=== PATIENT | female | born 1975 | race Caucasian/White ===

== ENCOUNTER 2016-10-23 16:40 | Emergency (ER) | payer OTHER ==
[~2016-10-23] VITALS: Ht 170.2 cm; Wt 142.2 kg
[~2016-10-23 16:40] MED LIST: ABILIFY15 MG PO; ABILIFY20 MG PO; ADVAIR 250/501 DISK IH; ADVAIR 500/501 DISK IH; ADVAIR HFA120 INHALA IH; ADVIL,NUPRIN,M200 MG PO; ADVIL200 MG PO; ALBUTEROL SULF8.5 GM IH; ALBUTEROL2.5 MG/3 M IH; ALEVE220 M2 PO; ALEVE220 MG PO; ALPRAZOLAM0.5 M1 PO; ALPRAZOLAM1 MG PO; AMARYL2 MG PO; AMLODIPINE BESYL5 MG PO; AMOX TR-K CLV1 EAC4 PO; AMOXICILLIN875 MG PO; ARIPIPRAZOLE20 MG PO; ASPIR 8181 M1 PO; ASPIRIN EC325 MG PO; ASPIRIN325 MG PO; ASPIRIN81 M2 PO; ATORVASTATIN CA40 MG PO; AUGMENTIN875 MG PO; AZITHROMYCIN250 MG1 PO; AZITHROMYCIN500 M1 PO; Advair HFA 115/21 IH; BACTRIM,SEPT1 TABLET PO; BENZONATATE100 MG PO; BUSPAR10 MG PO; BUSPIRONE HCL10 MG PO; Buspar PO; CALCIUM 500 MG1 EACH PO; CARAFATE1 GM PO; CARAFATE100 MG/ML PO; CEFDINIR300 MG PO; CEFTIN500 MG PO; CELLCEPT250 MG PO; CELLCEPT500 MG PO; CHANTIX1 EACH PO; CHANTIX1 MG PO; CHEWABLE-VITE1 EACH PO; CLARITIN,ALAVAR10 MG PO; CLEOCIN300 MG PO; CLINDAMYCIN HC300 MG PO; CLOBETASOL PROP60 GM TP; CLOBEX118 ML TP; CLOPIDOGREL75 MG PO; CORMAX50 M1 TP; COUMADIN7.5 MG PO; CYCLOBENZAPRINE10 MG PO; DELTASONE20 M1 PO; DIFLUCAN100 MG PO; DILAUDID2 MG PO; DILAUDID4 MG PO; DOXYCYCLINE HY100 MG PO; DUONEB 2.5-0.5 M3 ML AEROSOL; DUONEB 2.5-0.5 M3 ML IH; DURAGESIC12 MCG TD; Dilaudid PO; EFFEXOR XR150 MG PO; EFFEXOR XR75 MG PO; FLEXERIL10 MG PO; FLEXERIL5 MG PO; FLONASE16 G1 BOTH NARES; FLOVENT 22120 INHALA IH; FUROSEMIDE40 MG PO; Flexeril PO; GABAPENTIN300 MG PO; GABAPENTIN400 MG; GUAIFENESI100 MG/5 M PO; HUMALOG100 UNIT/1 SC; Habitrol,Nicoderm CQ TD; INDERAL10 MG PO; INDERAL20 MG PO; IRON240 MG PO; K-DUR20 MEQ PO; KENALOG,ARISTOC80 GM TP; KLOR-CON M2020 MEQ PO; LANTUS 10100 UNITS/ SC; LASIX40 MG PO; LEVEMIR FL100 UNIT/1 SC; LIPITOR40 MG PO; LISINOPRIL2.5 MG PO; LOPRESSOR25 MG PO; LOVENOX100 MG/1 M SC; LOVENOX150 MG/1 M SC; LYRICA100 MG PO; LYRICA150 MG PO; LYRICA50 MG PO; MAGIC MOUTHWASH1 ML MM; MELOXICAM15 MG PO; MELOXICAM7.5 MG PO; METFORMIN HCL500 MG PO; METOPROLOL TART25 MG PO; MIRALAX255 GM PO; MOBIC15 MG PO; MORGIDOX100 MG PO; MORPHINE SULFAT15 M1 PO; MORPHINE SULFAT15 MG PO; MOTRIN IB200 MG PO; MOTRIN800 MG PO; MS CONTIN,ORAMO15 M1 PO; MUCINEX600 MG PO; NAPROSYN250 MG PO; NAPROSYN500 MG PO; NEURONTIN300 MG PO; NEURONTIN400 MG PO; NICODERM CQ1 EAC2 TD; NICOTINE PATCH1 EAC2 TD; NITROSTAT0.4 MG SL; NORCO 5/3251 TABLET PO; NORVASC2.5 MG PO; NOVOLOG PE100 UNITS/ SC; NOXAFIL100 MG PO; Neurontin PO; OMEPRAZOLE40 M1 PO; ONDANSETRON ODT4 MG PO; ONDANSETRON ODT8 MG PO; OXYCODONE H5 MG/5 ML PO; OXYCODONE HCL10 MG PO; OXYCODONE HCL5 MG PO; OXYCONTIN10 MG PO; PHENERGAN25 MG PR; PLAVIX75 MG PO; POTASSIUM CHLO20 ME1 PO; PRAZOSIN HCL2 MG PO; PREDNISONE PO; PREDNISONE10 MG PO; PREDNISONE20 MG PO; PREDNISONE5 MG PO; PREDNISONE50 MG PO; PRILOSEC OTC20 MG PO; PRILOSEC20 MG PO; PROAIR HFA8.5 GM IH; PROMETHAZINE HC25 MG PR; PROTONIX40 MG PO; PROVENTIL,2.5 MG/3 M IH; QUETIAPINE FUM200 MG PO; QUETIAPINE FUMA25 MG PO; QUETIAPINE FUMA50 MG PO; RANEXA500 MG PO; ROXICODONE15 MG PO; Robitussin, Organidi PO; SEROQUEL12.5 MG PO; SEROQUEL200 MG PO; SEROQUEL50 MG PO; SINGULAIR10 MG PO; SPIRIVA RESPIMAT4 GM IH; SPIRIVA1 INHALATI IH; SYMBICORT60 INHALAT IH; Singulair PO; Spiriva IH; TEMOVATE 0.05%30 GM TP; TESSALON PERLE100 MG PO; TESSALON200 MG PO; TOPAMAX25 MG PO; TOPAMAX50 MG PO; TRAMADOL HCL50 MG PO; TRANSDERM-SCO1 PATCH TD; TRESIBA FL100 UNIT/1 SC; Tessalon Perle PO; Tums,OsCal PO; ULTRAM50 MG PO; VENLAFAXINE HCL75 M1 PO; VENLAFAXINE HCL75 M3 PO; VENLAFAXINE HCL75 MG PO; VENLAFAXINE225 MG PO; VENTOLIN HFA18 GM IH; VITAMIN B-121000 MC1 PO; VITAMIN B-122000 MC1 PO; XANAX1 MG; XANAX1 MG PO; XANAX2 MG PO; XARELTO20 MG PO; ZANTAC150 MG PO; ZITHROMAX250 MG PO; ZITHROMAX500 MG PO; ZOFRAN ODT4 MG PO; ZOFRAN4 MG PO; ZOFRAN8 M1 PO; ZOFRAN8 MG PO; ZOLOFT25 MG PO; ZOMIG5 MG PO; Zeasorb Antifungal Treatment,Mitrazol Powder TP; Zithromax PO; [UNRECOGNIZED DRUG - OTHER] PO; predniSONE PO
[2016-10-23 17:49] LABS: HEMATOCRIT 41.2 % (36.0-46.0); MCH 30.7 PG (29.0-34.0); MCHC 35.4 G/DL (30.0-36.0); MCV 86.6 FL (83-99); MEAN PLAT.VOLUME 11.8 uM^3 (9.5-12.4); PLATELET COUNT 170 K/uL (156-360); RBC DIS.WIDTH-CV 14.3 % (11.8-14.6); RBC DIS.WIDTH-SD 44.7 % (39-53); RED BLOOD COUNT 4.76 M/uL (3.80-5.20); WHITE BLOOD COUNT 5.3 K/uL (4.1-10.2)
[2016-10-23 17:57] LABS: CHLORIDE 104 mEq/L (99-109); POTASSIUM 3.3 mEq/L (3.7-5.4); SODIUM 140 mEq/L (136-147)
[2016-10-23 17:59] LABS: GLUCOSE 88 mg/dL (70-99)
[2016-10-23 18:00] LABS: ANION GAP 12 MEQ/L (2-14)
[2016-10-23 18:03] LABS: GFR ESTIMATE (CALCULATED) > 59 mL/min/
[2016-10-23 18:04] LABS: UREA NITROGEN (BUN) 5 mg/dL (9-23)
[2016-10-23 18:10] LABS: TROP-I INTERPRETATION NEGATIVE; TROPONIN-I < 0.01 ng/mL (0.0-0.30)
[2016-10-23] MEDS ORDERED: XANAX1 MG PO (21:46)
[2016-10-23] MEDS ORDERED: ZOFRAN8 MG PO (21:50)
[2016-10-23] MEDS ORDERED: OXYCODONE HCL10 MG PO (21:52)
[2016-10-23] MEDS ORDERED: VENTOLIN HFA18 GM IH (21:53)
[2016-10-23] MEDS ORDERED: VITAMIN B12 100MCG PO (21:54)
[2016-10-23] MEDS ORDERED: DAILY VITE1 EAC1 PO (21:55)
[2016-10-23] MEDS ORDERED: ERGOCALCIF50000 UNIT PO (21:55)
[2016-10-23] MEDS ORDERED: CALCIUM500 M4 PO (21:56)
[2016-10-23 22:30] VITALS: BP 120/58
[2016-10-24] MEDS ORDERED: ABILIFY20 MG PO (14:26)
[2016-10-24] MEDS ORDERED: DUONEB 2.5-0.5 M3 ML AEROSOL (14:33)
[2016-10-24] MEDS ORDERED: AUGMENTIN875 MG PO (14:34)
[2016-10-24] MEDS ORDERED: DELTASONE20 M1 PO (14:34)
[2016-10-24] MEDS ORDERED: BACTRIM,SEPT1 TABLET PO (14:35)
== END 2016-10-23 23:14 | disposition left against medical advice (07) ==
LOC: EME 16:40 → EDOF 23:06
PROVIDERS: Emergency Medicine
DX: J18.9 Pneumonia, unspecified organism (principal); R09.02 Hypoxemia; E11.9 Type 2 diabetes mellitus without complications; I50.9 Heart failure, unspecified; Z99.81 Dependence on supplemental oxygen; Z98.84 Bariatric surgery status; I25.2 Old myocardial infarction; Z90.49 Acquired absence of other specified parts of digestive tract
CPT/HCPCS: 71020; 80048; 84484; 85027; 87040; 93005; 99281; 99285; J0456; J1885; J2405; J2543

== ENCOUNTER 2016-10-24 12:03 | Inpatient (IN) | payer OTHER ==
[~2016-10-24] VITALS: Ht 170.2 cm; Wt 139.4 kg
[~2016-10-24 12:03] MED LIST changes: +CALCIUM500 M4 PO; +DAILY VITE1 EAC1 PO; +ERGOCALCIF50000 UNIT PO; +VITAMIN B12 100MCG PO
[2016-10-24] MEDS ORDERED: ABILIFY20 MG PO (14:26)
[2016-10-24] MEDS ORDERED: DUONEB 2.5-0.5 M3 ML AEROSOL (14:33)
[2016-10-24] MEDS ORDERED: AUGMENTIN875 MG PO (14:34)
[2016-10-24] MEDS ORDERED: DELTASONE20 M1 PO (14:34)
[2016-10-24] MEDS ORDERED: BACTRIM,SEPT1 TABLET PO (14:35)
[2016-10-24 15:19] LABS: EOSINOPHIL (%) 0.7 % (0-5); HEMATOCRIT 38.5 % (36.0-46.0); IMMATURE GRANULOCYTE (%) 0.4 % (0.0-0.7); IMMATURE GRANULOCYTE COUNT 0.2 K/uL; LYMPHOCYTE COUNT 0.4 K/uL (1.0-2.8); MCH 30.8 PG (29.0-34.0); MCHC 35.3 G/DL (30.0-36.0); MCV 87.3 FL (83-99); MEAN PLAT.VOLUME 11.7 uM^3 (9.5-12.4); MONOCYTE (%) 2.9 % (3-12); MONOCYTE COUNT 0.1 K/uL (0-0.8); NEUTROPHIL (%) 87.6 % (45-76); PLATELET COUNT 175 K/uL (156-360); RBC DIS.WIDTH-CV 14.3 % (11.8-14.6); RBC DIS.WIDTH-SD 44.8 % (39-53); RED BLOOD COUNT 4.41 M/uL (3.80-5.20); WHITE BLOOD COUNT 4.6 K/uL (4.1-10.2)
[2016-10-24 15:28] LABS: CHLORIDE 105 mEq/L (99-109); POTASSIUM 3.2 mEq/L (3.7-5.4); SODIUM 139 mEq/L (136-147)
[2016-10-24 15:31] LABS: ANION GAP 10 MEQ/L (2-14)
[2016-10-24 15:32] LABS: TOTAL BILIRUBIN 0.5 mg/dL (0.0-1.0)
[2016-10-24 15:34] LABS: ALKALINE PHOSPHATASE 168 IU/L (3-129); GFR ESTIMATE (CALCULATED) > 59 mL/min/
[2016-10-24 15:35] LABS: UREA NITROGEN (BUN) 6 mg/dL (9-23)
[2016-10-24 15:37] LABS: GLUCOSE 114 mg/dL (70-99)
[2016-10-24 15:40] LABS: TROP-I INTERPRETATION NEGATIVE; TROPONIN-I < 0.01 ng/mL (0.0-0.30)
[2016-10-24 15:43] LABS: QUANTITATIVE HCG < 4.0 MIU/ML
[2016-10-24 15:47] VITALS: BP 132/67
[2016-10-24 16:42] LABS: INFLUENZA A VIRAL ANTIGEN NEGATIVE; INFLUENZA B VIRAL ANTIGEN NEGATIVE
[2016-10-24 20:00] VITALS: BP 116/69
== END 2016-10-24 22:42 | disposition left against medical advice (07) | DRG 193 ==
LOC: EME 12:03 → EDOF 13:48 → 5SOUTH 13:48
PROVIDERS: Emergency Medicine
DX: J18.9 Pneumonia, unspecified organism (principal); J96.00 Acute respiratory failure, unspecified whether with hypoxia or hypercapnia; J44.1 Chronic obstructive pulmonary disease with (acute) exacerbation; D68.51 Activated protein C resistance; E66.01 Morbid (severe) obesity due to excess calories; J84.89 Other specified interstitial pulmonary diseases; E11.9 Type 2 diabetes mellitus without complications; I50.9 Heart failure, unspecified; E78.5 Hyperlipidemia, unspecified; I25.10 Atherosclerotic heart disease of native coronary artery without angina pectoris; G47.33 Obstructive sleep apnea (adult) (pediatric); G89.29 Other chronic pain; I10 Essential (primary) hypertension; M79.7 Fibromyalgia; Z95.5 Presence of coronary angioplasty implant and graft; Z98.84 Bariatric surgery status; Z87.891 Personal history of nicotine dependence; I25.2 Old myocardial infarction; Z90.49 Acquired absence of other specified parts of digestive tract
CPT/HCPCS: 71010; 71020; 80048; 80053; 83605; 83880; 84484; 84702; 85025; 85027; 87040; 87070; 87205; 87502; 93005; 94640; 94640 76; 94799; 99202; 99281; 99285; J0456; J0692; J1170; J1885; J2405; J2543; J2930; J3010; J7030; J7050

== ENCOUNTER 2016-10-26 21:16 | Inpatient (IN) | payer OTHER ==
[~2016-10-26] VITALS: Ht 170.2 cm; Wt 134.9 kg
[2016-10-26 22:42] LABS: EOSINOPHIL (%) 0.2 % (0-5); HEMATOCRIT 37.9 % (36.0-46.0); IMMATURE GRANULOCYTE (%) 0.3 % (0.0-0.7); IMMATURE GRANULOCYTE COUNT 0.3 K/uL; LYMPHOCYTE COUNT 0.6 K/uL (1.0-2.8); MCH 31.1 PG (29.0-34.0); MCHC 35.9 G/DL (30.0-36.0); MCV 86.7 FL (83-99); MEAN PLAT.VOLUME 11.3 uM^3 (9.5-12.4); MONOCYTE COUNT 0.4 K/uL (0-0.8); NEUTROPHIL (%) 89.2 % (45-76); NEUTROPHIL COUNT 7.9 K/uL (1.8-6.4); PLATELET COUNT 180 K/uL (156-360); RBC DIS.WIDTH-CV 14.1 % (11.8-14.6); RBC DIS.WIDTH-SD 44.4 % (39-53); RED BLOOD COUNT 4.37 M/uL (3.80-5.20)
[2016-10-26 22:43] LABS: WHITE BLOOD COUNT 8.9 K/uL (4.1-10.2)
[2016-10-26 22:50] LABS: CHLORIDE 102 mEq/L (99-109); POTASSIUM 2.9 mEq/L (3.7-5.4); SODIUM 137 mEq/L (136-147)
[2016-10-26 22:52] LABS: GLUCOSE 148 mg/dL (70-99)
[2016-10-26 22:53] LABS: ANION GAP 12 MEQ/L (2-14)
[2016-10-26 22:56] LABS: GFR ESTIMATE (CALCULATED) > 59 mL/min/; UREA NITROGEN (BUN) 5 mg/dL (9-23)
[2016-10-27] MEDS ORDERED: CALCIUM 500 MG1 EACH PO (01:00)
[2016-10-27] MEDS ORDERED: CYANOCOBALAM1000 MCG PO (01:01)
[2016-10-27] MEDS ORDERED: VITAMIN B-125000 MCG SL (01:03)
[2016-10-27 01:20] LABS: ADD MIUA? YES; BILIRUBIN NEGATIVE; BLOOD NEGATIVE; COLOR YELLOW ((YELLOW)); GLUCOSE (STRIP) 100; KETONES NEGATIVE; LEUKOCYTES TRACE; NITRITE NEGATIVE; PH, URINE 6.5 (5-8); PROTEIN (STRIP) NEGATIVE; SPECIFIC GRAVITY 1.015 (1.000-1.030)
[2016-10-27 01:43] LABS: BACTERIA 1+; CASTS PRESENT /LPF; CRYSTALS NONE SEEN; EPITHELIAL CELLS 1+; HYALINE CASTS 0-5 /LPF; MUCUS RARE; RED BLOOD CELLS NONE SEEN /HPF (0-5); UCUL ADDED? NO; WHITE BLOOD CELLS 0-5 /HPF (0-5)
[2016-10-27 03:34] VITALS: BP 115/67
[2016-10-27 04:10] LABS: TROP-I INTERPRETATION NEGATIVE; TROPONIN-I < 0.01 ng/mL (0.0-0.30)
[2016-10-27 08:53] LABS: ANION GAP 10 MEQ/L (2-14); CHLORIDE 102 MEQ/L (99-109); GFR ESTIMATE (CALCULATED) > 59 mL/min/; GLUCOSE 146 mg/dL (70-99); SAMPLE HEMOLYSIS CHECK 0; SAMPLE ICTERIC CHECK 0; SAMPLE LIPEMIA CHECK 0; SODIUM 137 MEQ/L (136-147); UREA NITROGEN (BUN) 6 mg/dL (9-23)
[2016-10-27 08:54] LABS: POTASSIUM 3.9 MEQ/L (3.7-5.4)
[2016-10-27 09:17] VITALS: BP 129/63
[2016-10-27 11:44] VITALS: BP 110/66
[2016-10-27 16:05] VITALS: BP 107/50
[2016-10-27 20:00] VITALS: BP 131/78
[2016-10-27 23:39] VITALS: BP 98/54
[2016-10-28 04:00] VITALS: BP 113/57
[2016-10-28 08:55] VITALS: BP 156/58
[2016-10-28] MEDS ORDERED: LEVAQUIN750 MG PO (09:25)
[2016-10-28 11:31] VITALS: BP 130/59
[2016-10-28] MEDS ORDERED: AZITHROMYCIN500 M1 PO (14:00)
[2016-10-28] MEDS ORDERED: AUGMENTIN875 MG PO (14:00)
== END 2016-10-28 14:21 | disposition home health service (06) | DRG 189 ==
LOC: EME 21:16 → EDOF 10-27 01:46 → 4EAST 10-27 01:46
PROVIDERS: Emergency Medicine; Hospitalist; Internal Medicine
DX: J96.21 Acute and chronic respiratory failure with hypoxia (principal); J18.9 Pneumonia, unspecified organism; D68.51 Activated protein C resistance; Z86.74 Personal history of sudden cardiac arrest; J84.89 Other specified interstitial pulmonary diseases; E66.2 Morbid (severe) obesity with alveolar hypoventilation; Z68.42 Body mass index [BMI] 45.0-49.9, adult; J44.0 Chronic obstructive pulmonary disease with (acute) lower respiratory infection; Z99.81 Dependence on supplemental oxygen; Z91.19 Patient's noncompliance with other medical treatment and regimen; J44.1 Chronic obstructive pulmonary disease with (acute) exacerbation; J45.909 Unspecified asthma, uncomplicated; G89.29 Other chronic pain; E11.9 Type 2 diabetes mellitus without complications; I10 Essential (primary) hypertension; I25.9 Chronic ischemic heart disease, unspecified; Z79.891 Long term (current) use of opiate analgesic; Z98.84 Bariatric surgery status; E78.5 Hyperlipidemia, unspecified; M54.9 Dorsalgia, unspecified; F17.210 Nicotine dependence, cigarettes, uncomplicated; Z95.5 Presence of coronary angioplasty implant and graft; I25.2 Old myocardial infarction; J20.9 Acute bronchitis, unspecified; Z86.718 Personal history of other venous thrombosis and embolism; Z86.711 Personal history of pulmonary embolism
CPT/HCPCS: 71010; 80048; 81003; 83880; 84484; 85025; 87040; 87070; 87205; 93005; 94640 76; 94644; 94799; 99202; 99281; 99285; J0692; J1100; J2060; J2405; J2930; J3010; J3475; J7050; J7644

== ENCOUNTER 2016-10-30 10:02 | Inpatient (IN) | payer OTHER ==
[~2016-10-30] VITALS: Ht 170.2 cm; Wt 139.5 kg
[~2016-10-30 10:02] MED LIST changes: +CYANOCOBALAM1000 MCG PO; +LEVAQUIN750 MG PO; +VITAMIN B-125000 MCG SL
[2016-10-30 10:58] LABS: HEMATOCRIT 40.3 % (36.0-46.0); MCH 30.5 PG (29.0-34.0); MCHC 34.7 G/DL (30.0-36.0); MCV 87.8 FL (83-99); MEAN PLAT.VOLUME 11.1 uM^3 (9.5-12.4); PLATELET COUNT 206 K/uL (156-360); RBC DIS.WIDTH-CV 13.9 % (11.8-14.6); RBC DIS.WIDTH-SD 44.6 % (39-53); RED BLOOD COUNT 4.59 M/uL (3.80-5.20); WHITE BLOOD COUNT 6.3 K/uL (4.1-10.2)
[2016-10-30 11:58] LABS: ANION GAP 14 MEQ/L (2-14); CHLORIDE 101 MEQ/L (99-109); POTASSIUM 3.2 MEQ/L (3.7-5.4); SAMPLE HEMOLYSIS CHECK 0; SAMPLE ICTERIC CHECK 0; SAMPLE LIPEMIA CHECK 0; SODIUM 141 MEQ/L (136-147)
[2016-10-30 12:05] LABS: GFR ESTIMATE (CALCULATED) > 59 mL/min/; GLUCOSE 114 mg/dL (70-99); UREA NITROGEN (BUN) 8 mg/dL (9-23)
[2016-10-30] MEDS ORDERED: BACTRIM,SEPT1 TABLET PO (12:48)
[2016-10-30] MEDS ORDERED: VITAMIN B-125000 MCG SL (12:58)
[2016-10-30] MEDS ORDERED: ZITHROMAX500 MG PO (12:59)
[2016-10-30 13:28] LABS: BASE EXCESS 3.2 mEq/L (-3 to +3); BICARBONATE 28.5 mEq/L (22-26); CARBOXY HGB 3.7 % (0-5); COMMENTS - BLOOD GASES A+C+; DEVICE NC; METHEMOGLOBIN 1.4 % (0-1.5); O2 FLOW 4 L/MIN; PCO2 45 mm Hg (35-45); PO2 81 mm Hg (80-100); SITE LR; pH 7.41 (7.35-7.45)
[2016-10-30 13:29] LABS: TOTAL RESP RATE 18 resp/min
[2016-10-30 16:38] VITALS: BP 130/61
[2016-10-30 23:32] VITALS: BP 105/58
[2016-10-31 07:07] VITALS: BP 109/52
[2016-10-31 08:48] LABS: ANION GAP 9 MEQ/L (2-14); CHLORIDE 104 MEQ/L (99-109); GFR ESTIMATE (CALCULATED) > 59 mL/min/; GLUCOSE 190 mg/dL (70-99); POTASSIUM 4.8 MEQ/L (3.7-5.4); SAMPLE HEMOLYSIS CHECK 0; SAMPLE ICTERIC CHECK 0; SAMPLE LIPEMIA CHECK 0; SODIUM 138 MEQ/L (136-147); UREA NITROGEN (BUN) 10 mg/dL (9-23)
[2016-10-31 15:09] VITALS: BP 120/67
[2016-10-31 15:12] VITALS: BP 155/71
[2016-10-31 17:20] VITALS: BP 134/63
[2016-10-31 17:34] VITALS: BP 131/51
[2016-10-31 18:04] LABS: TROP-I INTERPRETATION NEGATIVE; TROPONIN-I < 0.01 ng/mL (0.0-0.30)
[2016-10-31 21:46] LABS: METH RESISTANT S AUREUS PCR NEGATIVE (NEGATIVE); PROBE CHECK PASS; SPECIMEN PROCESSING CONTROL PASS
[2016-11-14] MEDS ORDERED: DUONEB 2.5-0.5 M3 ML AEROSOL (13:07)
[2016-11-14] MEDS ORDERED: VENTOLIN HFA18 GM IH (13:09)
[2016-11-14] MEDS ORDERED: HYDROMORPHONE HC4 MG PO (13:13)
== END 2016-10-31 21:39 | disposition left against medical advice (07) | DRG 190 ==
LOC: EME 10:02 → 5EAST 12:53 → EDOF 12:53 → 5EAST 16:30
PROVIDERS: Hospitalist
DX: J44.0 Chronic obstructive pulmonary disease with (acute) lower respiratory infection (principal); J18.9 Pneumonia, unspecified organism; J96.11 Chronic respiratory failure with hypoxia; D68.51 Activated protein C resistance; F11.20 Opioid dependence, uncomplicated; E66.2 Morbid (severe) obesity with alveolar hypoventilation; Z68.42 Body mass index [BMI] 45.0-49.9, adult; J44.1 Chronic obstructive pulmonary disease with (acute) exacerbation; E87.6 Hypokalemia; J84.89 Other specified interstitial pulmonary diseases; I77.6 Arteritis, unspecified; G89.4 Chronic pain syndrome; E78.5 Hyperlipidemia, unspecified; I10 Essential (primary) hypertension; I25.10 Atherosclerotic heart disease of native coronary artery without angina pectoris; E11.9 Type 2 diabetes mellitus without complications; Y95 Nosocomial condition; Z99.81 Dependence on supplemental oxygen; I25.2 Old myocardial infarction; Z95.5 Presence of coronary angioplasty implant and graft; Z86.74 Personal history of sudden cardiac arrest; Z86.711 Personal history of pulmonary embolism; Z86.718 Personal history of other venous thrombosis and embolism; Z88.1 Allergy status to other antibiotic agents; Z88.5 Allergy status to narcotic agent; Z88.6 Allergy status to analgesic agent; Z87.891 Personal history of nicotine dependence; Z79.01 Long term (current) use of anticoagulants; Z98.84 Bariatric surgery status
CPT/HCPCS: 36600; 71020; 80048; 82803; 83880; 84145 90; 84484; 85027; 87040; 87641; 93005; 94640; 94640 76; 94760; 94799; 99202; 99281; 99285; J0456; J0692; J1100; J2405; J2543; J2930; J3370; J7050

== ENCOUNTER 2016-11-23 20:18 | Emergency (ER) | payer OTHER ==
[~2016-11-23] VITALS: Ht 170.2 cm; Wt 131.4 kg
[~2016-11-23 20:18] MED LIST changes: +HYDROMORPHONE HC4 MG PO
[2016-11-23 20:43] LABS: HEMATOCRIT 41.1 % (36.0-46.0); MCH 30.5 PG (29.0-34.0); MCV 87.1 FL (83-99); MEAN PLAT.VOLUME 11.6 uM^3 (9.5-12.4); PLATELET COUNT 214 K/uL (156-360); RBC DIS.WIDTH-CV 14.6 % (11.8-14.6); RED BLOOD COUNT 4.72 M/uL (3.80-5.20); WHITE BLOOD COUNT 5.7 K/uL (4.1-10.2)
[2016-11-23 21:21] LABS: D-DIMER ELISA 0.42 mg/L FEU (< 0.57)
[2016-11-23 21:50] LABS: CHLORIDE 109 mEq/L (99-109); POTASSIUM 3.4 mEq/L (3.7-5.4); SODIUM 140 mEq/L (136-147)
[2016-11-23 21:52] LABS: GLUCOSE 101 mg/dL (70-99)
[2016-11-23 21:53] LABS: ANION GAP 9 MEQ/L (2-14)
[2016-11-23 21:56] LABS: GFR ESTIMATE (CALCULATED) > 59 mL/min/
[2016-11-23 21:57] LABS: UREA NITROGEN (BUN) 4 mg/dL (9-23)
[2016-11-23] MEDS ORDERED: PREDNISONE20 MG PO (22:19)
[2016-11-23 22:47] VITALS: BP 114/82
== END 2016-11-23 22:40 | disposition home or self-care (01) ==
LOC: EME 20:18
PROVIDERS: Physician Assistant
DX: J44.1 Chronic obstructive pulmonary disease with (acute) exacerbation (principal); Z86.718 Personal history of other venous thrombosis and embolism; Z86.711 Personal history of pulmonary embolism; Z79.01 Long term (current) use of anticoagulants; E11.9 Type 2 diabetes mellitus without complications; M79.7 Fibromyalgia; Z87.442 Personal history of urinary calculi; I25.2 Old myocardial infarction; R56.9 Unspecified convulsions; Z87.891 Personal history of nicotine dependence
CPT/HCPCS: 71020; 80048; 85027; 85379; 94640; 99281; 99284; J2930; Q0177

== ENCOUNTER 2016-11-24 13:38 | Emergency (ER) | payer OTHER ==
[~2016-11-24] VITALS: Ht 170.2 cm; Wt 133.2 kg
[2016-11-24 14:14] LABS: HEMATOCRIT 42.5 % (36.0-46.0); MCH 30.9 PG (29.0-34.0); MCHC 35.5 G/DL (30.0-36.0); MCV 86.9 FL (83-99); MEAN PLAT.VOLUME 11.8 uM^3 (9.5-12.4); PLATELET COUNT 199 K/uL (156-360); RBC DIS.WIDTH-CV 14.2 % (11.8-14.6); RBC DIS.WIDTH-SD 44.9 % (39-53); RED BLOOD COUNT 4.89 M/uL (3.80-5.20); WHITE BLOOD COUNT 8.2 K/uL (4.1-10.2)
[2016-11-24 14:19] LABS: CHLORIDE 108 mEq/L (99-109); POTASSIUM 3.7 mEq/L (3.7-5.4); SODIUM 140 mEq/L (136-147)
[2016-11-24 14:21] LABS: GLUCOSE 131 mg/dL (70-99)
[2016-11-24 14:23] LABS: ANION GAP 11 MEQ/L (2-14)
[2016-11-24 14:24] LABS: SERUM ETHYL ALCOHOL < 10 mg/dL
[2016-11-24 14:25] LABS: GFR ESTIMATE (CALCULATED) > 59 mL/min/
[2016-11-24 14:26] LABS: UREA NITROGEN (BUN) 5 mg/dL (9-23)
[2016-11-24 18:17] VITALS: BP 97/50
== END 2016-11-24 19:00 | disposition home or self-care (01) ==
LOC: EME 13:38
PROVIDERS: Emergency Medicine
DX: R56.9 Unspecified convulsions (principal); E86.0 Dehydration; R51 Headache; I25.2 Old myocardial infarction; I50.9 Heart failure, unspecified; I10 Essential (primary) hypertension; J84.89 Other specified interstitial pulmonary diseases; J44.9 Chronic obstructive pulmonary disease, unspecified; J45.909 Unspecified asthma, uncomplicated; E11.9 Type 2 diabetes mellitus without complications; G89.29 Other chronic pain; M79.7 Fibromyalgia; F32.9 Major depressive disorder, single episode, unspecified; Z79.01 Long term (current) use of anticoagulants; Z87.891 Personal history of nicotine dependence; Z88.1 Allergy status to other antibiotic agents; Z88.6 Allergy status to analgesic agent
CPT/HCPCS: 70450; 80048; 83605; 83735; 85027; 93005; 99281; 99285; G0480; J2270; J2310; J2405; J7030

== ENCOUNTER 2016-11-26 19:02 | Emergency (ER) | payer OTHER ==
[~2016-11-26] VITALS: Ht 170.2 cm; Wt 135.0 kg
[2016-11-26] MEDS ORDERED: ZOLOFT50 MG PO (19:16)
[2016-11-26] MEDS ORDERED: ABILIFY20 MG PO (19:16)
[2016-11-26] MEDS ORDERED: BUSPAR10 MG PO (19:17)
[2016-11-26] MEDS ORDERED: PRAZOSIN HCL2 MG PO (19:17)
[2016-11-26 23:06] LABS: ADD MIUA? YES; BILIRUBIN NEGATIVE; BLOOD NEGATIVE; COLOR YELLOW ((YELLOW)); GLUCOSE (STRIP) NEGATIVE; KETONES NEGATIVE; LEUKOCYTES TRACE; NITRITE NEGATIVE; PROTEIN (STRIP) NEGATIVE; SPECIFIC GRAVITY 1.012 (1.000-1.030); UROBILINOGEN 0.2 MG/DL (0.2-1.0)
[2016-11-26 23:07] LABS: HEMATOCRIT 39.5 % (36.0-46.0); MCH 30.4 PG (29.0-34.0); MCHC 34.2 G/DL (30.0-36.0); MEAN PLAT.VOLUME 11.9 uM^3 (9.5-12.4); PLATELET COUNT 176 K/uL (156-360); RBC DIS.WIDTH-CV 14.4 % (11.8-14.6); RBC DIS.WIDTH-SD 45.9 % (39-53); RED BLOOD COUNT 4.44 M/uL (3.80-5.20); WHITE BLOOD COUNT 6.7 K/uL (4.1-10.2)
[2016-11-26 23:15] LABS: CHLORIDE 109 mEq/L (99-109)
[2016-11-26 23:16] LABS: AMPHETAMINE NEGATIVE (500 ng/mL); BARBITURATES NEGATIVE (200 ng/mL); BENZODIAZEPINES PRESUMPTIVE POSITIVE (150 ng/mL); COCAINE NEGATIVE (150 ng/mL); INTERNAL CONTROLS VALID? YES; METHADONE NEGATIVE (200 ng/mL); METHAMPHETAMINE NEGATIVE (500 ng/mL); OPIATES (MORPHINE) PRESUMPTIVE POSITIVE (100 ng/mL); OXYCODONE NEGATIVE (100 ng/mL); PHENCYCLIDINE NEGATIVE (25 ng/mL); POTASSIUM 3.3 mEq/L (3.7-5.4); PROPOXYPHENE NEGATIVE (300 ng/mL); SODIUM 141 mEq/L (136-147); THC CANNABINOIDS NEGATIVE (50 ng/mL); TRICYCLIC ANTIDEPRESSANTS PRESUMPTIVE POSITIVE (300 ng/mL)
[2016-11-26 23:17] LABS: ADD MEDTOX COMMENT Y
[2016-11-26 23:19] LABS: ANION GAP 8 MEQ/L (2-14)
[2016-11-26 23:21] LABS: BACTERIA RARE /HPF; EPITHELIAL CELLS 3+ /HPF; GFR ESTIMATE (CALCULATED) > 59 mL/min/; GLUCOSE 79 mg/dL (70-99); HYALINE CASTS 0-5 /LPF; MUCUS 1+ /LPF; RED BLOOD CELLS 0-5 /HPF (0-5); UCUL ADDED? NO; UNCLASSIFIED CASTS 0-5 /LPF; UNCLASSIFIED CRYSTALS 2+ /HPF
[2016-11-26 23:22] LABS: UREA NITROGEN (BUN) 5 mg/dL (9-23)
[2016-11-26 23:24] LABS: CREATINE KINASE 21 IU/L (1-294); TOTAL CK 21 IU/L (1-294)
[2016-11-26 23:31] LABS: QUANTITATIVE HCG < 4.0 MIU/ML
[2016-11-26 23:32] LABS: CK-MB 0.5 ng/mL (0.0-4.9)
[2016-11-26 23:50] LABS: INTER. NORMALIZED RATIO 1.1; PROTHROMBIN TIME 10.8 (9.2-11.2); PTT 26.8 (25-32)
[2016-11-26 23:52] LABS: OPIATES QUANTITATIVE VALUE 0 NG/ML
[2016-11-26 23:59] LABS: BENZODIAZEPINES, URINE SCREEN POSITIVE (200 ng/mL)
[2016-11-27 00:27] VITALS: BP 118/58
== END 2016-11-27 00:28 | disposition left against medical advice (07) ==
LOC: EME 19:02
PROVIDERS: Emergency Medicine
DX: R56.9 Unspecified convulsions (principal); R51 Headache; Z76.5 Malingerer [conscious simulation]; E11.9 Type 2 diabetes mellitus without complications; J44.9 Chronic obstructive pulmonary disease, unspecified; I10 Essential (primary) hypertension; Z87.442 Personal history of urinary calculi; I25.2 Old myocardial infarction; G89.29 Other chronic pain; Z79.891 Long term (current) use of opiate analgesic; Z87.891 Personal history of nicotine dependence
CPT/HCPCS: 80048; 81003; 82550; 82553; 84702; 84999; 85027; 85610; 85730; 99281; 99285; J0780; J1100; J1200; J7030

== ENCOUNTER 2016-12-22 15:18 | Inpatient (IN) | payer OTHER ==
[~2016-12-22] VITALS: Ht 170.2 cm; Wt 141.0 kg
[~2016-12-22 15:18] MED LIST changes: +ZOLOFT50 MG PO
[2016-12-22 16:16] LABS: HEMATOCRIT 35.5 % (36.0-46.0); MCH 30.3 PG (29.0-34.0); MCHC 34.6 G/DL (30.0-36.0); MCV 87.4 FL (83-99); MEAN PLAT.VOLUME 11.7 uM^3 (9.5-12.4); PLATELET COUNT 155 K/uL (156-360); RBC DIS.WIDTH-CV 13.6 % (11.8-14.6); RBC DIS.WIDTH-SD 43.7 % (39-53); RED BLOOD COUNT 4.06 M/uL (3.80-5.20); WHITE BLOOD COUNT 7.9 K/uL (4.1-10.2)
[2016-12-22 16:16] LABS: BASE EXCESS 2.4 mEq/L (-3 to +3); BICARBONATE 26.4 mEq/L (22-26); CARBOXY HGB 3.7 % (0-5); METHEMOGLOBIN 1.1 % (0-1.5); PO2 111 mm Hg (80-100); pH 7.45 (7.35-7.45)
[2016-12-22 16:17] LABS: COMMENTS - BLOOD GASES A+C+; DEVICE NRBM; FI02 100 %; O2 FLOW 15 L/MIN; PCO2 38 mm Hg (35-45); TOTAL RESP RATE 30 resp/min
[2016-12-22 16:25] LABS: CHLORIDE 97 mEq/L (99-109); POTASSIUM 4.5 mEq/L (3.7-5.4); SODIUM 133 mEq/L (136-147)
[2016-12-22 16:27] LABS: GLUCOSE 131 mg/dL (70-99)
[2016-12-22 16:28] LABS: ANION GAP 13 MEQ/L (2-14)
[2016-12-22 16:31] LABS: GFR ESTIMATE (CALCULATED) > 59 mL/min/; UREA NITROGEN (BUN) 11 mg/dL (9-23)
[2016-12-22 16:38] LABS: TROP-I INTERPRETATION NEGATIVE; TROPONIN-I 0.02 ng/mL (0.0-0.30)
[2016-12-22 17:04] LABS: TOTAL BILIRUBIN 1.2 mg/dL (0.0-1.0)
[2016-12-22 17:05] LABS: ALKALINE PHOSPHATASE 172 IU/L (3-129)
[2016-12-22 17:07] LABS: DIRECT BILIRUBIN 0.6 mg/dL (0.0-0.3)
[2016-12-22 18:28] LABS: INFLUENZA A VIRAL ANTIGEN NEGATIVE; INFLUENZA B VIRAL ANTIGEN NEGATIVE
[2016-12-22] MEDS ORDERED: VYVANSE20 MG PO (19:54)
[2016-12-22 23:25] LABS: POINT-OF-CARE METER ID UU14100415
[2016-12-23] VITALS (15 sets, daily range): BP systolic 86–108; BP diastolic 39–62
[2016-12-23 01:52] LABS: METH RESISTANT S AUREUS PCR NEGATIVE (NEGATIVE)
[2016-12-23 01:54] LABS: PROBE CHECK PASS; SPECIMEN PROCESSING CONTROL PASS
[2016-12-23 01:57] LABS: POINT-OF-CARE METER ID UU13113803
[2016-12-23 02:41] LABS: ADD MIUA? YES; BILIRUBIN NEGATIVE; BLOOD LARGE; COLOR YELLOW ((YELLOW)); GLUCOSE (STRIP) 50; KETONES NEGATIVE; LEUKOCYTES NEGATIVE; NITRITE NEGATIVE; PROTEIN (STRIP) NEGATIVE; SPECIFIC GRAVITY 1.016 (1.000-1.030)
[2016-12-23 03:12] LABS: BACTERIA 1+ /HPF; EPITHELIAL CELLS 2+ /HPF; MUCUS NONE SEEN /LPF; RED BLOOD CELLS TNTC /HPF (0-5); UCUL ADDED? NO; WHITE BLOOD CELLS NONE SEEN /HPF (0-5)
[2016-12-23 06:29] LABS: ANION GAP 7 MEQ/L (2-14); CHLORIDE 104 MEQ/L (99-109); GFR ESTIMATE (CALCULATED) > 59 mL/min/; POTASSIUM 4.1 MEQ/L (3.7-5.4); SAMPLE HEMOLYSIS CHECK 0; SAMPLE ICTERIC CHECK 0; SAMPLE LIPEMIA CHECK 0; SODIUM 137 MEQ/L (136-147); UREA NITROGEN (BUN) 10 mg/dL (9-23)
[2016-12-23 06:33] LABS: EOSINOPHIL (%) 0 % (0-5); HEMATOCRIT 32.2 % (36.0-46.0); IMMATURE GRANULOCYTE (%) 0.6 % (0.0-0.7); INSTRUMENT ABS NEUTROPHIL CT 4.7 K/uL; LYMPHOCYTE COUNT 0.4 K/uL (1.0-2.8); MCH 30.3 PG (29.0-34.0); MCHC 33.9 G/DL (30.0-36.0); MCV 89.4 FL (83-99); MONOCYTE (%) 2.3 % (3-12); MONOCYTE COUNT 0.1 K/uL (0-0.8); NEUTROPHIL COUNT 4.7 K/uL (1.8-6.4); PLATELET COUNT 116 K/uL (156-360); RBC DIS.WIDTH-CV 13.9 % (11.8-14.6); RBC DIS.WIDTH-SD 45.6 % (39-53); WHITE BLOOD COUNT 5.2 K/uL (4.1-10.2)
[2016-12-23 06:38] LABS: GLUCOSE 211 mg/dL (70-99)
[2016-12-23 08:57] LABS: INTERNAL CONTROL VALID? YES
[2016-12-23 11:51] LABS: POINT-OF-CARE METER ID UU13113698
[2016-12-23 16:25] LABS: POINT-OF-CARE METER ID UU13113698
[2016-12-23 21:25] LABS: POINT-OF-CARE METER ID UU13113781
[2016-12-24 03:46] VITALS: BP 102/53
[2016-12-24 07:58] LABS: POINT-OF-CARE METER ID UU14174216
[2016-12-24 09:00] VITALS: BP 107/58
[2016-12-24 11:34] LABS: POINT-OF-CARE METER ID UU14174216
[2016-12-24 16:42] LABS: POINT-OF-CARE METER ID UU14174216
[2016-12-24 17:33] VITALS: BP 117/73
[2016-12-24 19:15] VITALS: BP 111/61
[2016-12-24 21:33] LABS: POINT-OF-CARE METER ID UU14174216
[2016-12-25 00:27] VITALS: BP 105/60
[2016-12-25 04:14] VITALS: BP 110/62
[2016-12-25 07:55] LABS: POINT-OF-CARE USER ID NUTSLF44
[2016-12-25 07:57] VITALS: BP 107/62
[2016-12-25 11:59] VITALS: BP 112/67
[2016-12-25 12:05] LABS: POINT-OF-CARE USER ID NUTSLF44
[2016-12-25] MEDS ORDERED: PREDNISONE20 MG PO (21:51)
[2016-12-26] MEDS ORDERED: OMEPRAZOLE40 M1 PO (17:01)
[2016-12-26] MEDS ORDERED: BUSPAR10 MG PO (17:01)
== END 2016-12-25 14:04 | disposition left against medical advice (07) | DRG 871 ==
LOC: EME 15:18 → EDOF 22:00 → 4EAST 22:00 → 4WEST 12-23 00:23 → 4EAST 12-23 06:25
PROVIDERS: Emergency Medicine; Hospitalist; Internal Medicine; Nurse Practitioner Family
DX: A41.53 Sepsis due to Serratia (principal); J96.21 Acute and chronic respiratory failure with hypoxia; J84.116 Cryptogenic organizing pneumonia; E66.2 Morbid (severe) obesity with alveolar hypoventilation; Z68.42 Body mass index [BMI] 45.0-49.9, adult; D68.2 Hereditary deficiency of other clotting factors; J44.1 Chronic obstructive pulmonary disease with (acute) exacerbation; T17.898A Other foreign object in other parts of respiratory tract causing other injury, initial encounter; Z99.81 Dependence on supplemental oxygen; G89.4 Chronic pain syndrome; I25.10 Atherosclerotic heart disease of native coronary artery without angina pectoris; I50.9 Heart failure, unspecified; E11.9 Type 2 diabetes mellitus without complications; E78.5 Hyperlipidemia, unspecified; I10 Essential (primary) hypertension; E78.00 Pure hypercholesterolemia, unspecified; F17.210 Nicotine dependence, cigarettes, uncomplicated; T49.3X5A Adverse effect of emollients, demulcents and protectants, initial encounter; J84.10 Pulmonary fibrosis, unspecified; Z98.61 Coronary angioplasty status; Z98.84 Bariatric surgery status; Z79.01 Long term (current) use of anticoagulants; Z88.6 Allergy status to analgesic agent; Z88.1 Allergy status to other antibiotic agents; Z86.711 Personal history of pulmonary embolism; I25.2 Old myocardial infarction; Z80.3 Family history of malignant neoplasm of breast; Z83.3 Family history of diabetes mellitus; Z82.49 Family history of ischemic heart disease and other diseases of the circulatory system; Y92.9 Unspecified place or not applicable
CPT/HCPCS: 36600; 71010; 73110; 80048; 80076; 80202; 81003; 82803; 82948; 83605; 83880; 84484; 85025; 85027; 86331 90; 86606 90; 86609 90; 87040; 87070; 87077; 87186; 87205; 87449; 87502; 87641; 87801; 93005; 94640; 94640 76; 94644; 94799; 99202; 99281; 99285; J0456; J1815; J2310; J2543; J2930; J3370; J3475; J7030; J7050

== ENCOUNTER 2016-12-25 20:45 | Emergency (ER) | payer OTHER ==
[~2016-12-25] VITALS: Ht 170.2 cm; Wt 141.5 kg
[~2016-12-25 20:45] MED LIST changes: +VYVANSE20 MG PO
[2016-12-25 21:00] VITALS: BP 112/67
[2016-12-25 21:40] LABS: CHLORIDE 105 mEq/L (99-109); MCH 30.3 PG (29.0-34.0); MCHC 33.2 G/DL (30.0-36.0); MCV 91.2 FL (83-99); MEAN PLAT.VOLUME 11.8 uM^3 (9.5-12.4); POTASSIUM 3.5 mEq/L (3.7-5.4); RED BLOOD COUNT 3.73 M/uL (3.80-5.20); SODIUM 140 mEq/L (136-147)
[2016-12-25 21:41] LABS: GLUCOSE 226 mg/dL (70-99); PLATELET COUNT 181 K/uL (156-360); WHITE BLOOD COUNT 7.3 K/uL (4.1-10.2)
[2016-12-25 21:43] LABS: ANION GAP 10 MEQ/L (2-14)
[2016-12-25 21:45] LABS: CARBON DIOXIDE (BICARBONATE) 28.6 MEQ/L (20-31); GFR ESTIMATE (CALCULATED) > 59 mL/min/
[2016-12-25 21:46] LABS: UREA NITROGEN (BUN) 14 mg/dL (9-23)
[2016-12-25] MEDS ORDERED: PREDNISONE20 MG PO (21:51)
[2016-12-25 21:52] LABS: TROP-I INTERPRETATION NEGATIVE; TROPONIN-I < 0.01 ng/mL (0.0-0.30)
[2016-12-26] MEDS ORDERED: OMEPRAZOLE40 M1 PO (17:01)
[2016-12-26] MEDS ORDERED: BUSPAR10 MG PO (17:01)
== END 2016-12-25 22:00 | disposition left against medical advice (07) ==
LOC: EME → EDBD 20:45 → EME 22:00
PROVIDERS: Emergency Medicine
DX: J45.909 Unspecified asthma, uncomplicated (principal); E11.9 Type 2 diabetes mellitus without complications; J44.9 Chronic obstructive pulmonary disease, unspecified; I25.2 Old myocardial infarction; G89.29 Other chronic pain; Z79.891 Long term (current) use of opiate analgesic; F17.200 Nicotine dependence, unspecified, uncomplicated
CPT/HCPCS: 71010; 80048; 82803; 83605; 83880; 84484; 85027; 87040; 93005; 94640; 99281; 99283; J7644

== ENCOUNTER 2016-12-26 12:17 | Inpatient (IN) | payer OTHER ==
[~2016-12-26] VITALS: Ht 170.2 cm; Wt 136.8 kg
[2016-12-26 13:15] LABS: HEMATOCRIT 34.2 % (36.0-46.0); MCH 30.3 PG (29.0-34.0); MCHC 33.6 G/DL (30.0-36.0); MCV 90.2 FL (83-99); MEAN PLAT.VOLUME 11.5 uM^3 (9.5-12.4); PLATELET COUNT 189 K/uL (156-360); RBC DIS.WIDTH-SD 46.2 % (39-53); RED BLOOD COUNT 3.79 M/uL (3.80-5.20); WHITE BLOOD COUNT 5.9 K/uL (4.1-10.2)
[2016-12-26 13:27] LABS: CHLORIDE 106 mEq/L (99-109); POTASSIUM 3.3 mEq/L (3.7-5.4); SODIUM 143 mEq/L (136-147)
[2016-12-26 13:29] LABS: GLUCOSE 103 mg/dL (70-99)
[2016-12-26 13:30] LABS: ANION GAP 10 MEQ/L (2-14)
[2016-12-26 13:33] LABS: GFR ESTIMATE (CALCULATED) > 59 mL/min/
[2016-12-26 13:34] LABS: UREA NITROGEN (BUN) 11 mg/dL (9-23)
[2016-12-26 13:38] LABS: TROP-I INTERPRETATION NEGATIVE; TROPONIN-I < 0.01 ng/mL (0.0-0.30)
[2016-12-26] MEDS ORDERED: OMEPRAZOLE40 M1 PO (17:01)
[2016-12-26] MEDS ORDERED: BUSPAR10 MG PO (17:01)
[2016-12-26 20:43] VITALS: BP 124/61
[2016-12-26 23:49] VITALS: BP 86/50
[2016-12-27] VITALS (9 sets, daily range): BP systolic 96–142; BP diastolic 52–69
[2016-12-27 06:06] LABS: EOSINOPHIL (%) 0 % (0-5); HEMATOCRIT 31.5 % (36.0-46.0); IMMATURE GRANULOCYTE (%) 3.6 % (0.0-0.7); IMMATURE GRANULOCYTE COUNT 0.2 K/uL; INSTRUMENT ABS NEUTROPHIL CT 3.4 K/uL; LYMPHOCYTE COUNT 0.5 K/uL (1.0-2.8); MCH 30.3 PG (29.0-34.0); MCHC 33.3 G/DL (30.0-36.0); MCV 90.8 FL (83-99); MEAN PLAT.VOLUME 11.8 uM^3 (9.5-12.4); MONOCYTE (%) 3.8 % (3-12); MONOCYTE COUNT 0.2 K/uL (0-0.8); NEUTROPHIL (%) 80.5 % (45-76); NEUTROPHIL COUNT 3.4 K/uL (1.8-6.4); PLATELET COUNT 196 K/uL (156-360); RBC DIS.WIDTH-CV 14.5 % (11.8-14.6); RBC DIS.WIDTH-SD 47.7 % (39-53); RED BLOOD COUNT 3.47 M/uL (3.80-5.20); WHITE BLOOD COUNT 4.2 K/uL (4.1-10.2)
[2016-12-27 06:34] LABS: ALKALINE PHOSPHATASE 98 IU/L (3-129); ANION GAP 9 MEQ/L (2-14); CHLORIDE 106 MEQ/L (99-109); GFR ESTIMATE (CALCULATED) > 59 mL/min/; GLUCOSE 151 mg/dL (70-99); SAMPLE HEMOLYSIS CHECK 0; SAMPLE ICTERIC CHECK 0; SAMPLE LIPEMIA CHECK 0; SODIUM 140 MEQ/L (136-147); TOTAL BILIRUBIN 0.4 MG/DL (0.0-1.0); UREA NITROGEN (BUN) 9 mg/dL (9-23)
[2016-12-27 06:46] LABS: POTASSIUM 4.3 MEQ/L (3.7-5.4)
[2016-12-28] VITALS (7 sets, daily range): BP systolic 106–140; BP diastolic 51–67
[2016-12-28 11:19] LABS: POINT-OF-CARE METER ID UU14149397
[2016-12-28 16:51] LABS: POINT-OF-CARE METER ID UU14188577
[2016-12-29 04:03] VITALS: BP 102/51
[2016-12-29 07:53] VITALS: BP 116/59
[2016-12-29] MEDS ORDERED: PREDNISONE10 MG PO (08:41)
[2016-12-29 11:22] LABS: POINT-OF-CARE METER ID UU14149397
== END 2016-12-29 12:11 | disposition home or self-care (01) | DRG 314 ==
LOC: EME 12:17 → 3EAST 16:49 → EDOF 16:49 → 3EAST 19:09
PROVIDERS: Emergency Medicine; Hospitalist; Internal Medicine
DX: T80.211A Bloodstream infection due to central venous catheter, initial encounter (principal); J96.21 Acute and chronic respiratory failure with hypoxia; R78.81 Bacteremia; Z68.42 Body mass index [BMI] 45.0-49.9, adult; D68.2 Hereditary deficiency of other clotting factors; E11.9 Type 2 diabetes mellitus without complications; I10 Essential (primary) hypertension; E66.01 Morbid (severe) obesity due to excess calories; B96.89 Other specified bacterial agents as the cause of diseases classified elsewhere; I25.10 Atherosclerotic heart disease of native coronary artery without angina pectoris; G89.4 Chronic pain syndrome; Z95.5 Presence of coronary angioplasty implant and graft; Z99.81 Dependence on supplemental oxygen; Y83.1 Surgical operation with implant of artificial internal device as the cause of abnormal reaction of the patient, or of later complication, without mention of misadventure at the time of the procedure; J45.901 Unspecified asthma with (acute) exacerbation; E87.6 Hypokalemia; J44.1 Chronic obstructive pulmonary disease with (acute) exacerbation
CPT/HCPCS: 71020; 80048; 80053; 82948; 83605; 83880; 84484; 85025; 85027; 87040; 93005; 94010; 94640; 94640 76; 94799; 99202; 99281; 99285; J0456; J0696; J1170; J1815; J2405; J2543; J2920; J3475; J7050; J7120; J7512

== ENCOUNTER 2017-01-05 21:14 | Emergency (ER) | payer OTHER ==
[~2017-01-05] VITALS: Ht 170.2 cm; Wt 127.1 kg
[2017-01-05 23:20] LABS: CHLORIDE 104 mEq/L (99-109); POTASSIUM 3.7 mEq/L (3.7-5.4); SODIUM 138 mEq/L (136-147)
[2017-01-05 23:21] LABS: INTER. NORMALIZED RATIO 1.1; PROTHROMBIN TIME 11.2 (9.2-11.2)
[2017-01-05 23:22] LABS: GLUCOSE 103 mg/dL (70-99)
[2017-01-05 23:23] LABS: ANION GAP 12 MEQ/L (2-14)
[2017-01-05 23:24] LABS: TOTAL BILIRUBIN 0.7 mg/dL (0.0-1.0)
[2017-01-05 23:26] LABS: ALKALINE PHOSPHATASE 130 IU/L (3-129); GFR ESTIMATE (CALCULATED) > 59 mL/min/
[2017-01-05 23:27] LABS: UREA NITROGEN (BUN) 8 mg/dL (9-23)
[2017-01-06 00:12] LABS: MCH 29.9 PG (29.0-34.0); MCHC 33.4 G/DL (30.0-36.0); MCV 89.4 FL (83-99); RBC DIS.WIDTH-CV 14.2 % (11.8-14.6); RBC DIS.WIDTH-SD 46.5 % (39-53); RED BLOOD COUNT 4.25 M/uL (3.80-5.20)
[2017-01-06 00:13] LABS: PLATELET COUNT UNABLE TO REPORT K/uL (156-360); WHITE BLOOD COUNT 4.5 K/uL (4.1-10.2)
[2017-01-06 00:30] VITALS: BP 90/49
== END 2017-01-06 00:39 | disposition home or self-care (01) ==
LOC: EME 21:14
PROVIDERS: Physician Assistant
DX: T80.1XXA Vascular complications following infusion, transfusion and therapeutic injection, initial encounter (principal); I80.8 Phlebitis and thrombophlebitis of other sites; J44.9 Chronic obstructive pulmonary disease, unspecified; J45.909 Unspecified asthma, uncomplicated; I10 Essential (primary) hypertension; Z79.01 Long term (current) use of anticoagulants; Z87.891 Personal history of nicotine dependence
CPT/HCPCS: 80053; 83605; 85027; 85610; 87040; 93971; 99281; 99283

== ENCOUNTER 2017-01-31 15:05 | Emergency (ER) | payer OTHER ==
[~2017-01-31] VITALS: Ht 170.2 cm; Wt 126.7 kg
[2017-01-31 16:56] LABS: HEMATOCRIT 35.9 % (36.0-46.0); MCH 29.6 PG (29.0-34.0); MCHC 33.7 G/DL (30.0-36.0); MCV 87.8 FL (83-99); MEAN PLAT.VOLUME 12.2 uM^3 (9.5-12.4); PLATELET COUNT 143 K/uL (156-360); RBC DIS.WIDTH-CV 14.7 % (11.8-14.6); RED BLOOD COUNT 4.09 M/uL (3.80-5.20)
[2017-01-31 17:02] LABS: CHLORIDE 104 mEq/L (99-109); POTASSIUM 3.8 mEq/L (3.7-5.4); SODIUM 137 mEq/L (136-147)
[2017-01-31 17:03] LABS: GLUCOSE 76 mg/dL (70-99)
[2017-01-31 17:05] LABS: ANION GAP 10 MEQ/L (2-14)
[2017-01-31 17:07] LABS: GFR ESTIMATE (CALCULATED) > 59 mL/min/
[2017-01-31 17:08] LABS: UREA NITROGEN (BUN) 4 mg/dL (9-23)
[2017-01-31 17:15] LABS: TROP-I INTERPRETATION NEGATIVE; TROPONIN-I < 0.01 ng/mL (0.0-0.30)
[2017-01-31 17:16] LABS: QUANTITATIVE HCG < 4.0 MIU/ML
[2017-01-31] MEDS ORDERED: LYRICA50 MG PO (20:39)
[2017-01-31] MEDS ORDERED: ADDERALL15 MG PO (20:40)
[2017-01-31 21:21] VITALS: BP 95/59
== END 2017-01-31 21:25 | disposition left against medical advice (07) ==
LOC: EME 15:05
PROVIDERS: Emergency Medicine
DX: G89.18 Other acute postprocedural pain (principal); R10.9 Unspecified abdominal pain; R11.10 Vomiting, unspecified; K92.0 Hematemesis; Z98.84 Bariatric surgery status; J45.909 Unspecified asthma, uncomplicated; J44.9 Chronic obstructive pulmonary disease, unspecified; I25.2 Old myocardial infarction; Z79.01 Long term (current) use of anticoagulants; Z88.1 Allergy status to other antibiotic agents; Z88.6 Allergy status to analgesic agent; Z88.5 Allergy status to narcotic agent; Z91.048 Other nonmedicinal substance allergy status
CPT/HCPCS: 71260; 74177; 80048; 83690; 84484; 84702; 85027; 86900; 86901; 93005; 99281; 99285; C9113; J2405; J3010; J7030

== ENCOUNTER 2017-02-07 12:56 | Inpatient (IN) | payer OTHER ==
[~2017-02-07] VITALS: Ht 170.2 cm; Wt 123.6 kg
[~2017-02-07 12:56] MED LIST changes: +ADDERALL15 MG PO
[2017-02-07 14:14] LABS: HEMATOCRIT 44.3 % (36.0-46.0); MCH 29.5 PG (29.0-34.0); MCV 89.5 FL (83-99); MEAN PLAT.VOLUME 10.9 uM^3 (9.5-12.4); RBC DIS.WIDTH-CV 16.2 % (11.8-14.6); RBC DIS.WIDTH-SD 52.6 % (39-53)
[2017-02-07 14:15] LABS: PLATELET COUNT 259 K/uL (156-360); RED BLOOD COUNT 4.95 M/uL (3.80-5.20); WHITE BLOOD COUNT 6.6 K/uL (4.1-10.2)
[2017-02-07 14:21] LABS: CHLORIDE 106 mEq/L (99-109); POTASSIUM 4.5 mEq/L (3.7-5.4); SODIUM 139 mEq/L (136-147)
[2017-02-07 14:24] LABS: GLUCOSE 119 mg/dL (70-99)
[2017-02-07 14:25] LABS: ANION GAP 14 MEQ/L (2-14)
[2017-02-07 14:26] LABS: TOTAL BILIRUBIN 4.8 mg/dL (0.0-1.0)
[2017-02-07 14:27] LABS: ALKALINE PHOSPHATASE 625 IU/L (3-129); GFR ESTIMATE (CALCULATED) > 59 mL/min/
[2017-02-07 14:28] LABS: UREA NITROGEN (BUN) 5 mg/dL (9-23)
[2017-02-07 14:33] LABS: INTER. NORMALIZED RATIO 1.2; PTT 31.7 (25-32)
[2017-02-07 15:30] LABS: LIPASE 346 U/L (1.0-51.0)
[2017-02-07 15:42] LABS: AMYLASE 156 IU/L (1-118)
[2017-02-07] MEDS ORDERED: EFFEXOR75 MG PO (19:54)
[2017-02-07] MEDS ORDERED: ABILIFY20 MG PO (19:55)
[2017-02-07] MEDS ORDERED: XARELTO20 MG PO (20:33)
[2017-02-07 21:07] LABS: C-REACTIVE PROTEIN 7.3 MG/L (0-10)
[2017-02-07 22:20] VITALS: BP 130/65
[2017-02-07 23:47] VITALS: BP 112/63
[2017-02-08 00:02] LABS: POINT-OF-CARE METER ID UU14162508
[2017-02-08 02:59] VITALS: BP 113/55
[2017-02-08 06:37] LABS: POINT-OF-CARE METER ID UU14162508
[2017-02-08 06:57] LABS: EOSINOPHIL (%) 0.2 % (0-5); HEMATOCRIT 40.9 % (36.0-46.0); INSTRUMENT ABS NEUTROPHIL CT 2.8 K/uL; LYMPHOCYTE COUNT 0.8 K/uL (1.0-2.8); MCH 29.3 PG (29.0-34.0); MCHC 32.3 G/DL (30.0-36.0); MCV 90.7 FL (83-99); MEAN PLAT.VOLUME 11.5 uM^3 (9.5-12.4); MONOCYTE (%) 9.2 % (3-12); MONOCYTE COUNT 0.4 K/uL (0-0.8); NEUTROPHIL COUNT 2.8 K/uL (1.8-6.4); PLATELET COUNT 199 K/uL (156-360); RBC DIS.WIDTH-CV 16.4 % (11.8-14.6); RBC DIS.WIDTH-SD 54.2 % (39-53); RED BLOOD COUNT 4.51 M/uL (3.80-5.20)
[2017-02-08 07:26] VITALS: BP 121/61
[2017-02-08 07:30] LABS: ALKALINE PHOSPHATASE 559 IU/L (3-129); ANION GAP 10 MEQ/L (2-14); CHLORIDE 104 MEQ/L (99-109); GFR ESTIMATE (CALCULATED) > 59 mL/min/; GLUCOSE 120 mg/dL (70-99); HDL CHOLESTEROL 13 MG/DL (Desirable>=50); LDL CHOLESTEROL 167 mg/dL (Desirable<100); LIPASE 980 U/L (1.0-51.0); NON-HDL CHOLESTEROL 204 mg/dL (Desirable<160); POTASSIUM 4.2 MEQ/L (3.7-5.4); SAMPLE HEMOLYSIS CHECK 0; SAMPLE ICTERIC CHECK 1; SAMPLE LIPEMIA CHECK 0; SODIUM 137 MEQ/L (136-147); TOTAL BILIRUBIN 4.3 MG/DL (0.0-1.0); TOTAL CHOLESTEROL 217 mg/dL (Desirable<200); TRIGLYCERIDES 187 MG/DL (Normal: <150); UREA NITROGEN (BUN) 7 mg/dL (9-23)
[2017-02-08 09:17] LABS: AMPHETAMINES QUANT VALUE 0 NG/ML; BARBITUATES QUANT VALUE 0 NG/ML; BENZODIAZEPINES, URINE SCREEN POSITIVE (200 ng/mL); MARIJUANA QUANT VALUE 0 NG/ML; PHENCYCLIDINE QUANT VALUE 0 NG/ML
[2017-02-08 10:40] LABS: HBSG INDEX 0.16
[2017-02-08 10:42] LABS: ANTI-HEPATITIS A VIRUS (IGM) Nonreactive; HPCA INDEX 0.29
[2017-02-08 10:43] LABS: ANTI-HEPATITIS B CORE (IGM) Nonreactive; HBC IgM INDEX 0.12
[2017-02-08 11:30] VITALS: BP 116/58
[2017-02-08 11:39] LABS: POINT-OF-CARE METER ID UU14162508
[2017-02-08 11:40] LABS: ADD MIUA? NO; BILIRUBIN SMALL; BLOOD NEGATIVE; COLOR AMBER ((YELLOW)); GLUCOSE (STRIP) 50; KETONES 20; LEUKOCYTES NEGATIVE; NITRITE NEGATIVE; PROTEIN (STRIP) NEGATIVE; SPECIFIC GRAVITY 1.032 (1.000-1.030)
[2017-02-08 15:50] VITALS: BP 132/70
[2017-02-08 16:48] LABS: POINT-OF-CARE METER ID UU14162508
[2017-02-08 19:50] VITALS: BP 104/55
[2017-02-08 23:56] LABS: POINT-OF-CARE METER ID UU14162508
[2017-02-09 00:08] VITALS: BP 98/53
[2017-02-09 06:55] LABS: POINT-OF-CARE METER ID UU14162508
[2017-02-09 07:00] VITALS: BP 130/74
[2017-02-09 07:28] LABS: EOSINOPHIL (%) 1.6 % (0-5); EOSINOPHIL COUNT 0.1 K/uL (0-0.3); HEMATOCRIT 37.9 % (36.0-46.0); IMMATURE GRANULOCYTE COUNT 0.1 K/uL; INSTRUMENT ABS NEUTROPHIL CT 3.7 K/uL; LYMPHOCYTE COUNT 0.7 K/uL (1.0-2.8); MCH 29.9 PG (29.0-34.0); MCHC 32.5 G/DL (30.0-36.0); MCV 92.2 FL (83-99); MEAN PLAT.VOLUME 11.2 uM^3 (9.5-12.4); MONOCYTE (%) 8.1 % (3-12); MONOCYTE COUNT 0.4 K/uL (0-0.8); NEUTROPHIL (%) 74.5 % (45-76); NEUTROPHIL COUNT 3.7 K/uL (1.8-6.4); PLATELET COUNT 183 K/uL (156-360); RBC DIS.WIDTH-CV 16.5 % (11.8-14.6); RBC DIS.WIDTH-SD 55.6 % (39-53); RED BLOOD COUNT 4.11 M/uL (3.80-5.20); WHITE BLOOD COUNT 4.9 K/uL (4.1-10.2)
[2017-02-09 07:51] LABS: ALKALINE PHOSPHATASE 444 IU/L (3-129); ANION GAP 8 MEQ/L (2-14); CHLORIDE 104 MEQ/L (99-109); GFR ESTIMATE (CALCULATED) > 59 mL/min/; GLUCOSE 106 mg/dL (70-99); LIPASE 390 U/L (1.0-51.0); POTASSIUM 3.7 MEQ/L (3.7-5.4); SAMPLE HEMOLYSIS CHECK 0; SAMPLE ICTERIC CHECK 1; SAMPLE LIPEMIA CHECK 0; SODIUM 136 MEQ/L (136-147); UREA NITROGEN (BUN) 7 mg/dL (9-23)
[2017-02-09 11:00] VITALS: BP 127/63
[2017-02-09 15:00] VITALS: BP 107/59
[2017-02-09 16:12] LABS: HCV RNA (IU/mL) 682220 IU/mL (<15)
[2017-02-09 17:55] LABS: ANTI-SMOOTH MUSCLE (Actin)+ <20 U (<20)
[2017-02-09 18:26] LABS: MITOCHONDRIAL (M2) ANTIBODIES+ <=20.0 U (<=20.0)
[2017-02-09 23:31] VITALS: BP 135/67
[2017-02-09 23:33] VITALS: BP 134/87
[2017-02-10 06:42] LABS: EOSINOPHIL (%) 1.8 % (0-5); EOSINOPHIL COUNT 0.1 K/uL (0-0.3); HEMATOCRIT 34.7 % (36.0-46.0); IMMATURE GRANULOCYTE (%) 0.8 % (0.0-0.7); INSTRUMENT ABS NEUTROPHIL CT 3.7 K/uL; LYMPHOCYTE COUNT 0.8 K/uL (1.0-2.8); MCH 29.6 PG (29.0-34.0); MCHC 31.7 G/DL (30.0-36.0); MCV 93.3 FL (83-99); MEAN PLAT.VOLUME 11.8 uM^3 (9.5-12.4); MONOCYTE COUNT 0.5 K/uL (0-0.8); NEUTROPHIL COUNT 3.7 K/uL (1.8-6.4); PLATELET COUNT 172 K/uL (156-360); RBC DIS.WIDTH-CV 16.4 % (11.8-14.6); RBC DIS.WIDTH-SD 55.8 % (39-53); RED BLOOD COUNT 3.72 M/uL (3.80-5.20); WHITE BLOOD COUNT 5.1 K/uL (4.1-10.2)
[2017-02-10 07:09] LABS: ALKALINE PHOSPHATASE 364 IU/L (3-129); ANION GAP 7 MEQ/L (2-14); CHLORIDE 105 MEQ/L (99-109); GFR ESTIMATE (CALCULATED) > 59 mL/min/; GLUCOSE 93 mg/dL (70-99); LIPASE 166 U/L (1.0-51.0); POTASSIUM 3.4 MEQ/L (3.7-5.4); SAMPLE HEMOLYSIS CHECK 0; SAMPLE ICTERIC CHECK 1; SAMPLE LIPEMIA CHECK 0; SODIUM 137 MEQ/L (136-147); TOTAL BILIRUBIN 3.6 MG/DL (0.0-1.0); UREA NITROGEN (BUN) 4 mg/dL (9-23)
[2017-02-10 08:00] VITALS: BP 115/65
[2017-02-10 11:55] VITALS: BP 108/57
[2017-02-10 13:40] LABS: ADD MIUA? YES; BILIRUBIN NEGATIVE; BLOOD NEGATIVE; GLUCOSE (STRIP) 50; KETONES NEGATIVE; LEUKOCYTES TRACE; NITRITE NEGATIVE; PROTEIN (STRIP) NEGATIVE; SPECIFIC GRAVITY 1.011 (1.000-1.030)
[2017-02-10 13:48] LABS: COLOR DK YELLOW ((YELLOW))
[2017-02-10 14:03] LABS: BACTERIA NONE SEEN /HPF; EPITHELIAL CELLS 1+ /HPF; MUCUS NONE SEEN /LPF; RED BLOOD CELLS 0-5 /HPF (0-5)
[2017-02-10 15:15] VITALS: BP 111/61
[2017-02-10 23:32] VITALS: BP 111/54
[2017-02-11 07:10] VITALS: BP 118/59
[2017-02-11 07:13] LABS: EOSINOPHIL (%) 0.7 % (0-5); HEMATOCRIT 33.9 % (36.0-46.0); IMMATURE GRANULOCYTE (%) 0.9 % (0.0-0.7); IMMATURE GRANULOCYTE COUNT 0.1 K/uL; INSTRUMENT ABS NEUTROPHIL CT 4.5 K/uL; LYMPHOCYTE COUNT 0.8 K/uL (1.0-2.8); MCH 29.4 PG (29.0-34.0); MCHC 31.9 G/DL (30.0-36.0); MCV 92.4 FL (83-99); MEAN PLAT.VOLUME 11.2 uM^3 (9.5-12.4); MONOCYTE (%) 6.7 % (3-12); MONOCYTE COUNT 0.4 K/uL (0-0.8); NEUTROPHIL (%) 78.2 % (45-76); NEUTROPHIL COUNT 4.5 K/uL (1.8-6.4); PLATELET COUNT 201 K/uL (156-360); RBC DIS.WIDTH-CV 15.9 % (11.8-14.6); RBC DIS.WIDTH-SD 54.3 % (39-53); RED BLOOD COUNT 3.67 M/uL (3.80-5.20); WHITE BLOOD COUNT 5.8 K/uL (4.1-10.2)
[2017-02-11 07:39] LABS: ANION GAP 7 MEQ/L (2-14); CHLORIDE 104 MEQ/L (99-109); GFR ESTIMATE (CALCULATED) > 59 mL/min/; GLUCOSE 96 mg/dL (70-99); POTASSIUM 3.4 MEQ/L (3.7-5.4); SAMPLE HEMOLYSIS CHECK 0; SAMPLE ICTERIC CHECK 0; SAMPLE LIPEMIA CHECK 0; SODIUM 136 MEQ/L (136-147); UREA NITROGEN (BUN) 2 mg/dL (9-23)
[2017-02-11 09:37] LABS: ALKALINE PHOSPHATASE 309 IU/L (3-129); DIRECT BILIRUBIN 1.9 mg/dL (0.0-0.3); TOTAL BILIRUBIN 3.3 MG/DL (0.0-1.0)
[2017-02-11 11:28] VITALS: BP 125/60
[2017-02-11 16:11] VITALS: BP 119/75
[2017-02-11 19:30] VITALS: BP 125/75
[2017-02-11 23:00] VITALS: BP 125/58
[2017-02-12 03:05] VITALS: BP 120/60
[2017-02-12 07:15] VITALS: BP 132/62
[2017-02-12 07:34] LABS: ALKALINE PHOSPHATASE 240 IU/L (3-129); ANION GAP 7 MEQ/L (2-14); CHLORIDE 106 MEQ/L (99-109); DIRECT BILIRUBIN 1.2 mg/dL (0.0-0.3); GFR ESTIMATE (CALCULATED) > 59 mL/min/; GLUCOSE 100 mg/dL (70-99); LIPASE 79 U/L (1.0-51.0); POTASSIUM 3.3 MEQ/L (3.7-5.4); SAMPLE HEMOLYSIS CHECK 0; SAMPLE ICTERIC CHECK 0; SAMPLE LIPEMIA CHECK 0; SODIUM 138 MEQ/L (136-147); TOTAL BILIRUBIN 2.5 MG/DL (0.0-1.0); UREA NITROGEN (BUN) 2 mg/dL (9-23)
[2017-02-12 09:24] LABS: EOSINOPHIL (%) 2.2 % (0-5); EOSINOPHIL COUNT 0.1 K/uL (0-0.3); HEMATOCRIT 31.2 % (36.0-46.0); IMMATURE GRANULOCYTE (%) 0.9 % (0.0-0.7); INSTRUMENT ABS NEUTROPHIL CT 3.2 K/uL; LYMPHOCYTE COUNT 0.8 K/uL (1.0-2.8); MCH 29.8 PG (29.0-34.0); MCHC 32.1 G/DL (30.0-36.0); MCV 92.9 FL (83-99); MONOCYTE (%) 8.2 % (3-12); MONOCYTE COUNT 0.4 K/uL (0-0.8); NEUTROPHIL COUNT 3.2 K/uL (1.8-6.4); PLATELET COUNT 187 K/uL (156-360); RBC DIS.WIDTH-CV 15.9 % (11.8-14.6); RBC DIS.WIDTH-SD 53.7 % (39-53); RED BLOOD COUNT 3.36 M/uL (3.80-5.20); WHITE BLOOD COUNT 4.5 K/uL (4.1-10.2)
[2017-02-12 10:39] LABS: HBSG INDEX 0.22
[2017-02-12 10:40] LABS: ANTI-HEPATITIS A VIRUS (IGM) Nonreactive
[2017-02-12 10:41] LABS: ANTI-HEPATITIS B CORE (IGM) Nonreactive
[2017-02-12 11:10] LABS: HCV RNA (LOG IU/mL) 5.83 (<1.18)
[2017-02-12 12:16] LABS: HPCA INDEX 3.49
[2017-02-12 15:17] VITALS: BP 129/69
[2017-02-12 19:36] VITALS: BP 119/62
[2017-02-12 23:56] VITALS: BP 113/59
[2017-02-13 03:27] VITALS: BP 126/82
[2017-02-13 07:07] LABS: EOSINOPHIL (%) 3.2 % (0-5); EOSINOPHIL COUNT 0.1 K/uL (0-0.3); HEMATOCRIT 31.2 % (36.0-46.0); IMMATURE GRANULOCYTE (%) 0.8 % (0.0-0.7); INSTRUMENT ABS NEUTROPHIL CT 2.5 K/uL; LYMPHOCYTE COUNT 0.8 K/uL (1.0-2.8); MCH 29.8 PG (29.0-34.0); MCHC 32.1 G/DL (30.0-36.0); MCV 92.9 FL (83-99); MONOCYTE COUNT 0.3 K/uL (0-0.8); NEUTROPHIL (%) 65.1 % (45-76); NEUTROPHIL COUNT 2.5 K/uL (1.8-6.4); PLATELET COUNT 187 K/uL (156-360); RBC DIS.WIDTH-CV 15.4 % (11.8-14.6); RBC DIS.WIDTH-SD 52.1 % (39-53); RED BLOOD COUNT 3.36 M/uL (3.80-5.20); WHITE BLOOD COUNT 3.8 K/uL (4.1-10.2)
[2017-02-13 07:28] VITALS: BP 122/63
[2017-02-13 07:52] LABS: ALKALINE PHOSPHATASE 229 IU/L (3-129); ANION GAP 8 MEQ/L (2-14); CHLORIDE 108 MEQ/L (99-109); GFR ESTIMATE (CALCULATED) > 59 mL/min/; GLUCOSE 102 mg/dL (70-99); LIPASE 89 U/L (1.0-51.0); SAMPLE HEMOLYSIS CHECK 1; SAMPLE ICTERIC CHECK 0; SAMPLE LIPEMIA CHECK 0; SODIUM 144 MEQ/L (136-147); UREA NITROGEN (BUN) 2 mg/dL (9-23)
[2017-02-13 07:53] LABS: POTASSIUM 3.5 MEQ/L (3.7-5.4)
[2017-02-13 12:00] VITALS: BP 106/61
[2017-02-13 17:15] VITALS: BP 132/74
[2017-02-13 19:27] VITALS: BP 141/63
[2017-02-13 23:07] VITALS: BP 113/64
[2017-02-14 03:07] VITALS: BP 110/64
[2017-02-14 07:39] LABS: HEMATOCRIT 29.9 % (36.0-46.0); MCH 30.1 PG (29.0-34.0); MCHC 32.4 G/DL (30.0-36.0); MCV 92.9 FL (83-99); MEAN PLAT.VOLUME 11.3 uM^3 (9.5-12.4); PLATELET COUNT 188 K/uL (156-360); RBC DIS.WIDTH-CV 15.5 % (11.8-14.6); RBC DIS.WIDTH-SD 53.1 % (39-53); RED BLOOD COUNT 3.22 M/uL (3.80-5.20); WHITE BLOOD COUNT 3.6 K/uL (4.1-10.2)
[2017-02-14 08:22] LABS: ALKALINE PHOSPHATASE 228 IU/L (3-129); ANION GAP 7 MEQ/L (2-14); CHLORIDE 108 MEQ/L (99-109); GFR ESTIMATE (CALCULATED) > 59 mL/min/; GLUCOSE 112 mg/dL (70-99); LIPASE 63 U/L (1.0-51.0); POTASSIUM 3.3 MEQ/L (3.7-5.4); SAMPLE HEMOLYSIS CHECK 0; SAMPLE ICTERIC CHECK 0; SAMPLE LIPEMIA CHECK 0; SODIUM 143 MEQ/L (136-147); TOTAL BILIRUBIN 1.6 MG/DL (0.0-1.0)
[2017-02-14 08:25] LABS: UREA NITROGEN (BUN) < 2 mg/dL (9-23)
[2017-02-14 08:56] VITALS: BP 131/67
[2017-02-14 16:59] VITALS: BP 121/71
[2017-02-15 12:35] LABS: HCV RNA (LOG IU/mL) 4.29 (<1.18)
[2017-02-15 16:59] LABS: HCV RNA (LOG IU/mL) 4.3 (<1.18)
== END 2017-02-14 16:47 | disposition home or self-care (01) | DRG 439 ==
LOC: EME 12:56 → EDOF 19:41 → 2EAST 19:41
PROVIDERS: Hospitalist; Internal Medicine; Internal Medicine Gastroenterology; Physician Assistant
PROC: 0DB68ZX Excision of Stomach, Via Natural or Artificial Opening Endoscopic, Diagnostic (ICD-10-PCS; principal; 2017-02-13)
DX: K85.90 Acute pancreatitis without necrosis or infection, unspecified (principal); D68.2 Hereditary deficiency of other clotting factors; Z68.41 Body mass index [BMI] 40.0-44.9, adult; I50.22 Chronic systolic (congestive) heart failure; R17 Unspecified jaundice; F11.20 Opioid dependence, uncomplicated; R65.10 Systemic inflammatory response syndrome (SIRS) of non-infectious origin without acute organ dysfunction; K29.70 Gastritis, unspecified, without bleeding; J44.9 Chronic obstructive pulmonary disease, unspecified; G47.33 Obstructive sleep apnea (adult) (pediatric); E66.01 Morbid (severe) obesity due to excess calories; G89.4 Chronic pain syndrome; I10 Essential (primary) hypertension; E78.5 Hyperlipidemia, unspecified; I25.10 Atherosclerotic heart disease of native coronary artery without angina pectoris; D18.03 Hemangioma of intra-abdominal structures; E11.9 Type 2 diabetes mellitus without complications; G43.909 Migraine, unspecified, not intractable, without status migrainosus; Z98.84 Bariatric surgery status; I25.2 Old myocardial infarction; Z98.61 Coronary angioplasty status; F17.210 Nicotine dependence, cigarettes, uncomplicated; Z86.711 Personal history of pulmonary embolism; Z86.718 Personal history of other venous thrombosis and embolism; Z83.3 Family history of diabetes mellitus; Z81.1 Family history of alcohol abuse and dependence; Z91.128 Patient's intentional underdosing of medication regimen for other reason; Z79.01 Long term (current) use of anticoagulants
CPT/HCPCS: 74177; 74183; 76705; 80048; 80053; 80061; 80074; 80076; 80306 90; 81003; 82150; 82390; 82787 90; 82948; 83516 90; 83690; 85025; 85027; 85610; 85730; 86038; 86140; 86256 90; 87522 90; 88305; 88342 TC; 94640 76; 94760; 94799; 99202; 99281; 99285; C9113; G0480; J1170; J1815; J2060; J2250; J2270; J2405; J2765; J3010; J3480; J7030; J7040; J7120

== ENCOUNTER 2017-02-15 16:36 | Inpatient (IN) | payer OTHER ==
[~2017-02-15] VITALS: Ht 170.2 cm; Wt 118.8 kg
[~2017-02-15 16:36] MED LIST changes: +EFFEXOR75 MG PO
[2017-02-15 19:16] LABS: HEMATOCRIT 33.9 % (36.0-46.0); MCH 29.7 PG (29.0-34.0); MCV 89.9 FL (83-99); MEAN PLAT.VOLUME 9.9 uM^3 (9.5-12.4); PLATELET COUNT 242 K/uL (156-360); RBC DIS.WIDTH-CV 14.7 % (11.8-14.6); RBC DIS.WIDTH-SD 48.6 % (39-53); RED BLOOD COUNT 3.77 M/uL (3.80-5.20)
[2017-02-15 19:17] LABS: WHITE BLOOD COUNT 4.7 K/uL (4.1-10.2)
[2017-02-15 19:24] LABS: CHLORIDE 102 mEq/L (99-109); POTASSIUM 2.8 mEq/L (3.7-5.4); SODIUM 139 mEq/L (136-147)
[2017-02-15 19:26] LABS: GLUCOSE 89 mg/dL (70-99)
[2017-02-15 19:27] LABS: ANION GAP 10 MEQ/L (2-14)
[2017-02-15 19:28] LABS: TOTAL BILIRUBIN 1.4 mg/dL (0.0-1.0)
[2017-02-15 19:29] LABS: ALKALINE PHOSPHATASE 213 IU/L (3-129)
[2017-02-15 19:30] LABS: GFR ESTIMATE (CALCULATED) > 59 mL/min/
[2017-02-15 19:33] LABS: LIPASE 57 U/L (1.0-51.0)
[2017-02-15 19:39] LABS: QUANTITATIVE HCG < 4.0 MIU/ML
[2017-02-15 19:42] LABS: UREA NITROGEN (BUN) < 2 mg/dL (9-23)
[2017-02-15 22:07] LABS: MAGNESIUM 1.4 mg/dL (1.3-2.7)
[2017-02-15 22:48] VITALS: BP 130/61
[2017-02-16 03:16] VITALS: BP 102/58
[2017-02-16 05:32] LABS: HEMATOCRIT 29.9 % (36.0-46.0); MCH 29.7 PG (29.0-34.0); MCHC 33.1 G/DL (30.0-36.0); MCV 89.8 FL (83-99); MEAN PLAT.VOLUME 10.6 uM^3 (9.5-12.4); PLATELET COUNT 217 K/uL (156-360); RBC DIS.WIDTH-CV 14.9 % (11.8-14.6); RBC DIS.WIDTH-SD 49.1 % (39-53); RED BLOOD COUNT 3.33 M/uL (3.80-5.20); WHITE BLOOD COUNT 3.2 K/uL (4.1-10.2)
[2017-02-16 06:13] LABS: ALKALINE PHOSPHATASE 175 IU/L (3-129); ANION GAP 8 MEQ/L (2-14); CHLORIDE 107 MEQ/L (99-109); GFR ESTIMATE (CALCULATED) > 59 mL/min/; GLUCOSE 86 mg/dL (70-99); MAGNESIUM 2.1 mg/dl (1.3-2.7); POTASSIUM 3.2 MEQ/L (3.7-5.4); SAMPLE HEMOLYSIS CHECK 0; SAMPLE ICTERIC CHECK 0; SAMPLE LIPEMIA CHECK 0; SODIUM 142 MEQ/L (136-147); TOTAL BILIRUBIN 1.3 MG/DL (0.0-1.0); UREA NITROGEN (BUN) < 2 mg/dL (9-23)
[2017-02-16 11:49] VITALS: BP 96/58
[2017-02-16 12:42] LABS: ADD MIUA? YES; BILIRUBIN NEGATIVE; BLOOD SMALL; COLOR YELLOW ((YELLOW)); GLUCOSE (STRIP) NEGATIVE; KETONES 5; LEUKOCYTES NEGATIVE; NITRITE NEGATIVE; PROTEIN (STRIP) NEGATIVE; SPECIFIC GRAVITY 1.013 (1.000-1.030)
[2017-02-16 12:51] LABS: BACTERIA RARE /HPF; EPITHELIAL CELLS 2+ /HPF; MUCUS TRACE /LPF; RED BLOOD CELLS 0-5 /HPF (0-5); UCUL ADDED? NO; WHITE BLOOD CELLS 0-5 /HPF (0-5)
[2017-02-16 13:45] LABS: AMPHETAMINES QUANT VALUE 0 NG/ML; BARBITUATES QUANT VALUE 0 NG/ML; BENZODIAZEPINES, URINE SCREEN POSITIVE (200 ng/mL); MARIJUANA QUANT VALUE 0 NG/ML; PHENCYCLIDINE QUANT VALUE 0 NG/ML
[2017-02-16 15:51] VITALS: BP 115/58
[2017-02-16 20:00] VITALS: BP 109/52
[2017-02-16 23:57] VITALS: BP 115/56
[2017-02-17 04:10] VITALS: BP 109/56
[2017-02-17 04:42] LABS: EOSINOPHIL (%) 4.6 % (0-5); EOSINOPHIL COUNT 0.1 K/uL (0-0.3); HEMATOCRIT 31.9 % (36.0-46.0); INSTRUMENT ABS NEUTROPHIL CT 1.8 K/uL; LYMPHOCYTE COUNT 0.8 K/uL (1.0-2.8); MCH 29.5 PG (29.0-34.0); MCV 92.2 FL (83-99); MONOCYTE (%) 9.8 % (3-12); MONOCYTE COUNT 0.3 K/uL (0-0.8); NEUTROPHIL (%) 58.6 % (45-76); NEUTROPHIL COUNT 1.8 K/uL (1.8-6.4); PLATELET COUNT 196 K/uL (156-360); RBC DIS.WIDTH-CV 15.3 % (11.8-14.6); RBC DIS.WIDTH-SD 51.8 % (39-53); RED BLOOD COUNT 3.46 M/uL (3.80-5.20); WHITE BLOOD COUNT 3.1 K/uL (4.1-10.2)
[2017-02-17 04:53] LABS: CHLORIDE 109 mEq/L (99-109); POTASSIUM 3.7 mEq/L (3.7-5.4); SODIUM 142 mEq/L (136-147)
[2017-02-17 04:57] LABS: ANION GAP 8 MEQ/L (2-14)
[2017-02-17 04:59] LABS: ALKALINE PHOSPHATASE 186 IU/L (3-129); GFR ESTIMATE (CALCULATED) > 59 mL/min/
[2017-02-17 05:00] LABS: UREA NITROGEN (BUN) 2 mg/dL (9-23)
[2017-02-17 05:01] LABS: GLUCOSE 132 mg/dL (70-99)
[2017-02-17 05:02] LABS: LIPASE 43 U/L (1.0-51.0)
[2017-02-17 08:23] VITALS: BP 114/58
[2017-02-17 12:06] VITALS: BP 106/55
[2017-02-17 16:06] VITALS: BP 102/58
[2017-02-17 19:15] VITALS: BP 114/69
[2017-02-17 23:30] VITALS: BP 114/58
[2017-02-18 08:21] VITALS: BP 120/71
[2017-02-18 11:20] LABS: HEMATOCRIT 33.7 % (36.0-46.0); MCV 93.6 FL (83-99); MEAN PLAT.VOLUME 11.1 uM^3 (9.5-12.4); PLATELET COUNT 181 K/uL (156-360); RBC DIS.WIDTH-CV 14.9 % (11.8-14.6); RBC DIS.WIDTH-SD 52.1 % (39-53); WHITE BLOOD COUNT 4.2 K/uL (4.1-10.2)
[2017-02-18 11:47] VITALS: BP 111/64
[2017-02-18 12:22] LABS: ALKALINE PHOSPHATASE 184 IU/L (3-129); ANION GAP 8 MEQ/L (2-14); CHLORIDE 106 MEQ/L (99-109); GFR ESTIMATE (CALCULATED) > 59 mL/min/; GLUCOSE 108 mg/dL (70-99); LIPASE 44 U/L (1.0-51.0); POTASSIUM 3.9 MEQ/L (3.7-5.4); SAMPLE HEMOLYSIS CHECK 0; SAMPLE ICTERIC CHECK 0; SAMPLE LIPEMIA CHECK 0; SODIUM 142 MEQ/L (136-147); UREA NITROGEN (BUN) 2 mg/dL (9-23)
[2017-02-18 14:11] VITALS: BP 96/49
[2017-02-18 16:11] VITALS: BP 101/65
[2017-02-18 18:31] VITALS: BP 121/67
[2017-02-19] VITALS (7 sets, daily range): BP systolic 106–137; BP diastolic 59–69
[2017-02-20 03:43] VITALS: BP 135/65
[2017-02-20 06:58] LABS: MCH 30.1 PG (29.0-34.0); MCHC 31.9 G/DL (30.0-36.0); MCV 94.4 FL (83-99); RBC DIS.WIDTH-CV 14.9 % (11.8-14.6); RBC DIS.WIDTH-SD 51.9 % (39-53); RED BLOOD COUNT 3.39 M/uL (3.80-5.20)
[2017-02-20 06:59] LABS: WHITE BLOOD COUNT 2.3 K/uL (4.1-10.2)
[2017-02-20 07:05] LABS: ANION GAP 6 MEQ/L (2-14); CHLORIDE 106 MEQ/L (99-109); GFR ESTIMATE (CALCULATED) > 59 mL/min/; GLUCOSE 103 mg/dL (70-99); POTASSIUM 3.8 MEQ/L (3.7-5.4); SAMPLE HEMOLYSIS CHECK 0; SAMPLE ICTERIC CHECK 0; SAMPLE LIPEMIA CHECK 0; SODIUM 143 MEQ/L (136-147); UREA NITROGEN (BUN) 2 mg/dL (9-23)
[2017-02-20 08:05] LABS: PLAT.SUFFICIENCY DECREASED
[2017-02-20 08:07] LABS: PLATELET COUNT 113 K/uL (156-360)
[2017-02-20 08:22] VITALS: BP 117/64
[2017-02-20 13:06] VITALS: BP 117/66
[2017-02-20 16:07] VITALS: BP 121/69
[2017-02-20 19:58] VITALS: BP 138/74
[2017-02-21] VITALS (7 sets, daily range): BP systolic 95–137; BP diastolic 50–75
[2017-02-22 03:38] VITALS: BP 107/50
[2017-02-22 07:31] VITALS: BP 93/52
[2017-02-22 09:53] LABS: MCH 30.4 PG (29.0-34.0); MCHC 31.9 G/DL (30.0-36.0); MCV 95.2 FL (83-99); MEAN PLAT.VOLUME 12.3 uM^3 (9.5-12.4); PLATELET COUNT 126 K/uL (156-360); RBC DIS.WIDTH-CV 14.8 % (11.8-14.6); RBC DIS.WIDTH-SD 52.1 % (39-53); RED BLOOD COUNT 3.36 M/uL (3.80-5.20)
[2017-02-22 10:44] LABS: ANION GAP 8 MEQ/L (2-14); CHLORIDE 111 MEQ/L (99-109); GFR ESTIMATE (CALCULATED) > 59 mL/min/; GLUCOSE 128 mg/dL (70-99); POTASSIUM 3.3 MEQ/L (3.7-5.4); SAMPLE HEMOLYSIS CHECK 0; SAMPLE ICTERIC CHECK 0; SAMPLE LIPEMIA CHECK 0; SODIUM 144 MEQ/L (136-147); TOTAL BILIRUBIN 0.9 MG/DL (0.0-1.0); UREA NITROGEN (BUN) 4 mg/dL (9-23)
[2017-02-22 10:46] LABS: ALKALINE PHOSPHATASE 131 IU/L (3-129)
[2017-02-22 10:57] LABS: HPCA INDEX 7.81
[2017-02-22 11:36] VITALS: BP 104/55
[2017-02-22 15:08] VITALS: BP 117/74
[2017-02-22 19:55] VITALS: BP 114/65
[2017-02-22 23:57] VITALS: BP 105/52
[2017-02-23 04:17] VITALS: BP 103/60
[2017-02-23 05:51] LABS: HEMATOCRIT 31.3 % (36.0-46.0); MCH 30.3 PG (29.0-34.0); MCHC 31.9 G/DL (30.0-36.0); MCV 94.8 FL (83-99); MEAN PLAT.VOLUME 12.2 uM^3 (9.5-12.4); PLATELET COUNT 115 K/uL (156-360); RBC DIS.WIDTH-CV 14.7 % (11.8-14.6); RBC DIS.WIDTH-SD 51.8 % (39-53); WHITE BLOOD COUNT 2.1 K/uL (4.1-10.2)
[2017-02-23 06:35] LABS: ANION GAP 5 MEQ/L (2-14); CHLORIDE 104 MEQ/L (99-109); GFR ESTIMATE (CALCULATED) > 59 mL/min/; GLUCOSE 181 mg/dL (70-99); POTASSIUM 3.7 MEQ/L (3.7-5.4); SAMPLE HEMOLYSIS CHECK 0; SAMPLE ICTERIC CHECK 0; SAMPLE LIPEMIA CHECK 0; SODIUM 141 MEQ/L (136-147); UREA NITROGEN (BUN) 6 mg/dL (9-23)
[2017-02-23 08:41] VITALS: BP 130/77
[2017-02-23] MEDS ORDERED: OXYCONTIN10 MG PO (09:35)
[2017-02-23] MEDS ORDERED: HYDROMORPHONE HC4 MG PO (09:35)
[2017-02-23 09:45] VITALS: BP 130/77
== END 2017-02-23 11:25 | disposition home or self-care (01) | DRG 439 ==
LOC: EME 16:36 → EDOF 21:13 → 5WEST 21:13 → 5SOUTH 02-16 11:00 → 5WEST 02-16 11:00 → 5SOUTH 02-17 17:51
PROVIDERS: Hospitalist; Internal Medicine; Internal Medicine Gastroenterology; Nurse Practitioner Adult Health; Physician Assistant Medical
DX: K85.90 Acute pancreatitis without necrosis or infection, unspecified (principal); J84.89 Other specified interstitial pulmonary diseases; E87.6 Hypokalemia; I50.22 Chronic systolic (congestive) heart failure; E46 Unspecified protein-calorie malnutrition; R10.9 Unspecified abdominal pain; D68.51 Activated protein C resistance; Z86.74 Personal history of sudden cardiac arrest; R56.9 Unspecified convulsions; J44.9 Chronic obstructive pulmonary disease, unspecified; F11.20 Opioid dependence, uncomplicated; E66.01 Morbid (severe) obesity due to excess calories; Z68.41 Body mass index [BMI] 40.0-44.9, adult; G47.33 Obstructive sleep apnea (adult) (pediatric); I25.10 Atherosclerotic heart disease of native coronary artery without angina pectoris; E78.5 Hyperlipidemia, unspecified; E11.9 Type 2 diabetes mellitus without complications; G43.909 Migraine, unspecified, not intractable, without status migrainosus; G89.4 Chronic pain syndrome; I77.6 Arteritis, unspecified; F41.9 Anxiety disorder, unspecified; F32.9 Major depressive disorder, single episode, unspecified; L40.9 Psoriasis, unspecified; M96.1 Postlaminectomy syndrome, not elsewhere classified; I25.2 Old myocardial infarction; Z98.84 Bariatric surgery status; Z95.1 Presence of aortocoronary bypass graft; Z87.891 Personal history of nicotine dependence; Z87.01 Personal history of pneumonia (recurrent); Z90.49 Acquired absence of other specified parts of digestive tract
CPT/HCPCS: 71020; 74177; 80048; 80053; 80306 90; 81003; 83690; 83735; 84100; 84702; 85025; 85027; 86708 90; 86803; 87493; 94640; 94640 76; 94799; 99202; 99281; 99284; G0378; J1170; J1885; J2270; J2405; J2997; J3475; J3480

== ENCOUNTER 2017-03-01 20:32 | Emergency (ER) | payer OTHER ==
[~2017-03-01] VITALS: Ht 170.2 cm; Wt 118.5 kg
[2017-03-01 21:55] LABS: HEMATOCRIT 37.9 % (36.0-46.0); MCH 29.7 PG (29.0-34.0); MCHC 33.5 G/DL (30.0-36.0); MCV 88.6 FL (83-99); RBC DIS.WIDTH-CV 14.8 % (11.8-14.6); RBC DIS.WIDTH-SD 47.8 % (39-53); RED BLOOD COUNT 4.28 M/uL (3.80-5.20); WHITE BLOOD COUNT 4.6 K/uL (4.1-10.2)
[2017-03-01 21:57] LABS: CHLORIDE 104 mEq/L (99-109); POTASSIUM 3.4 mEq/L (3.7-5.4); SODIUM 136 mEq/L (136-147)
[2017-03-01 21:59] LABS: GLUCOSE 110 mg/dL (70-99)
[2017-03-01 22:01] LABS: ANION GAP 10 MEQ/L (2-14)
[2017-03-01 22:03] LABS: ALKALINE PHOSPHATASE 161 IU/L (3-129); GFR ESTIMATE (CALCULATED) > 59 mL/min/
[2017-03-01 22:04] LABS: UREA NITROGEN (BUN) 6 mg/dL (9-23)
[2017-03-01 22:07] LABS: AMYLASE 66 IU/L (1-118); LIPASE 82 U/L (1.0-51.0)
[2017-03-01 22:39] LABS: MEAN PLAT.VOLUME 11.7 uM^3 (9.5-12.4); PLAT.SUFFICIENCY DECREASED
[2017-03-01 22:41] LABS: PLATELET COUNT 178 K/uL (156-360)
[2017-03-01 23:47] LABS: ADD MIUA? YES; BILIRUBIN NEGATIVE; BLOOD NEGATIVE; COLOR YELLOW ((YELLOW)); GLUCOSE (STRIP) NEGATIVE; KETONES NEGATIVE; LEUKOCYTES MODERATE; NITRITE NEGATIVE; PROTEIN (STRIP) NEGATIVE; SPECIFIC GRAVITY 1.038 (1.000-1.030)
[2017-03-01 23:53] LABS: BACTERIA RARE /HPF; EPITHELIAL CELLS 4+ /HPF; MUCUS NONE SEEN /LPF; RED BLOOD CELLS 0-5 /HPF (0-5); UCUL ADDED? NO; WHITE BLOOD CELLS 15-20 /HPF (0-5)
[2017-03-02 00:13] VITALS: BP 122/71
[2017-03-02] MEDS ORDERED: MULTIVITAMIN (20:05)
== END 2017-03-02 00:16 | disposition home or self-care (01) ==
LOC: EME 20:32
PROVIDERS: Physician Assistant
DX: K86.1 Other chronic pancreatitis (principal); Z87.891 Personal history of nicotine dependence; Z88.1 Allergy status to other antibiotic agents; Z88.6 Allergy status to analgesic agent; Z88.5 Allergy status to narcotic agent; Z98.84 Bariatric surgery status; E11.9 Type 2 diabetes mellitus without complications; Z79.01 Long term (current) use of anticoagulants; Z87.442 Personal history of urinary calculi; K21.9 Gastro-esophageal reflux disease without esophagitis
CPT/HCPCS: 74177; 80053; 81003; 82150; 83690; 85027; 99281; 99285; J1885; J2270; J2405; J3010; J7030